=== PATIENT | female | born 1955 | race Caucasian/White ===

== ENCOUNTER 2017-09-05 11:08 | Outpatient (CLI) | payer OTHER | END 2017-09-05 11:09 | disposition home or self-care (01) | LOC: DTY/OP 11:08 | PROVIDERS: ATTEND Family Medicine | DX: E78.00 Pure hypercholesterolemia, unspecified (principal); K76.0 Fatty (change of) liver, not elsewhere classified | CPT/HCPCS: 97802 ==

== ENCOUNTER 2021-02-11 15:36 | Outpatient (CLI) | payer BC | END 2021-02-11 15:37 | disposition home or self-care (01) | LOC: BICMAMMO 15:36 | PROVIDERS: ATTEND Family Medicine | DX: Z12.31 Encounter for screening mammogram for malignant neoplasm of breast (principal); Z80.3 Family history of malignant neoplasm of breast; Z91.89 Other specified personal risk factors, not elsewhere classified | CPT/HCPCS: 77063; 77067 ==

== ENCOUNTER 2021-02-27 13:02 | Inpatient (IN) | payer BC ==
[~2021-02-27 13:02] MED LIST: FLU VACC QS2021-22(6MOS UP)/PF 60 MCG/0.5 ML SYRINGE IM ONE; Iopamidol-370 76% 500 ML 1 ML ONE
[2021-02-27] MEDS ORDERED: Lisinopril 10 MG TAB ONE (13:07)
[2021-02-27] MEDS ORDERED: Propofol 1,000 MG/100 ML VIAL IV ONE (13:07)
[2021-02-27] MEDS ORDERED: Norepinephrine 4 MG/4 ML VIAL ONE (13:22)
[2021-02-27] MEDS ORDERED: cefTRIAXone\\ROCEPHIN 2 GM VIAL ONE (13:26)
[2021-02-27] MEDS ORDERED: Vancomycin 1 GM/200 ML BAG ONE (13:26)
[2021-02-27] MEDS ORDERED: fentaNYL Citrate/PF 2,000 MCG in Sodium Chloride 0.9% 60 ML IV SCH (13:30)
[2021-02-27] MEDS ORDERED: Norepinephrine 8 MG in Dextrose 5% in Water 242 ML IVPB SCH (13:30)
[2021-02-27 13:31] LABS: Actual Bicarbonate (HCO3a) 20.8 mEq/L (22-28); Analyzer IN Cardio ER; Base Excess (BEa) -1.9 mEq/L (-2.0 to +3.0); CO2 Tension 28.8 mmHg (35.0-45.0); Carboxyhemoglobin (COHb) 0.2 gm% (0.0-3.0); Hemoglobin (Hb) 10.6 g/dL (12.0-16.0); O2 Tension (PaO2), arterial 244.1 mmHg (> 80.0); Potassium - ABG Lab 2.59 mmol/L (3.70-5.30); pH, Arterial 7.48 (7.35-7.45)
[2021-02-27 13:34] LABS: #Lymphocytes 0.4 thou/uL (1.20-3.40); #Monocytes 0.2 thou/uL (0.11-0.59); #Neutrophils 11.4 thou/uL (1.40-6.50); %Eosinophils 0.1 % (0.0-10.0); %Monocytes 1.9 % (0.0-10.0); Hemoglobin 11.3 g/dL (12.0-16.0); Mean Corpuscular HGB CONC 34.4 g/dL (32.0-36.0); Mean Corpuscular Hemoglobin 32.7 pg (27.0-31.0); Mean Corpuscular Volume 95.1 fL (78.0-98.0); Mean Platelet Volume 6.8 fL (7.4-10.4); Platelet Count 420 thou/uL (130-400); RBC Distribution Width 12.5 % (11.5-14.5); Red Blood Cell (RBC) Count 3.46 mill/uL (4.20-5.40)
[2021-02-27 13:35] LABS: Puncture Site RRA
[2021-02-27 13:37] LABS: Amphetamine Not Detected (NotDetected); Barbiturates Screen Not Detected (NotDetected); Benzodiazepine Screen Not Detected (NotDetected); Cocaine Metabolite Screen Not Detected (NotDetected); Methadone Not Detected (NotDetected); Methamphetamine Not Detected (NotDetected); Opiate Screen Not Detected (NotDetected); Oxycodone Screen Not Detected (NotDetected); Phencyclidine (PCP) Not Detected (NotDetected); THC/Cannabinoid Screen Not Detected (NotDetected); Tricyclic Screen Not Detected (NotDetected)
[2021-02-27 13:38] LABS: PTT 24.8 sec (22.9-36.1); Prothrombin Time 12.8 sec (12.0-14.7)
[2021-02-27 13:39] LABS: Bacteria/HPF None Seen HPF (None Seen); Bilirubin Negative (Negative); Blood, Urine 1+ (Negative); Clarity Clear (Clear); Glucose, Urine (Dipstick) 50 mg/dL (Negative); Ketone, Urine 40 mg/dL (Negative); Leukocyte Negative Leu/uL (Negative); Nitrite Negative (Negative); Protein, Urine (Dipstick) 70 mg/dL (Neg-Trace); RBC/HPF 0-3 HPF (0-3); Specific Gravity, Urine 1.014 (1.002-1.036); Squamous Epithelial None Seen HPF (0-3); Urobilinogen Normal mg/dL (Less than 2); WBC/HPF 0-3 HPF (0-3); pH, Urine 6.5 (5.0-9.0)
[2021-02-27 13:48] LABS: Acetaminophen Less than 6.0 mcg/mL (10.0-30.0); Alcohol Less than 10 mg/dL (Less than 10); CK (CPK) 397 U/L (29-168); Lipase 28 U/L (8-78); Salicylate Less than 8.0 mg/dL (15.0-30.0)
[2021-02-27 13:50] LABS: ALT (SGPT) 15 U/L (8-55); AST (SGOT) 29 U/L (5-34); Albumin 3.7 g/dL (3.4-4.8); Alkaline Phosphatase 68 U/L (40-110); Anion Gap 22 mmol/L (10-20); BUN (Urea Nitrogen) 5 mg/dL (9.8-20.1); Bilirubin, Total 0.6 mg/dL (0.2-1.2); Calc. Creatinine Clearance 0 mL/min (70-130); Calcium 9.5 mg/dL (7.8-10.44); Carbon Dioxide 22 mmol/L (23-31); Chloride 93 mmol/L (98-107); Globulin 2.7 g/dL (2.4-3.5); Glucose 150 mg/dL (80-115); Protein, Total 6.4 g/dL (5.8-8.1); Sodium 134 mmol/L (136-145)
[2021-02-27 13:56] LABS: Potassium 2.9 mmol/L (3.5-5.1)
[2021-02-27 14:13] LABS: CKMB 5.7 ng/mL (0-6.6)
[2021-02-27] MEDS ORDERED: Potassium Chloride 40 MEQ in Sodium Chloride 0.9% 250 ML 250 ML IVPB SCH (14:45)
[2021-02-27] MEDS ORDERED: Aspirin 300 MG Suppository ONE (15:49)
[2021-02-27] MEDS ORDERED: Fentanyl 100 MCG/2 ML VIAL ONE (15:57)
[2021-02-27 16:25] LABS: SARS-CoV-2 NAA Rapid Test Not Detected (NotDetected)
[2021-02-27] MEDS ORDERED: Pantoprazole 40 MG VIAL ONE (16:27)
[2021-02-27] MEDS ORDERED: Pantoprazole 80 MG, Admixture Fee 1 EACH in Sodium Chloride 0.9% 100 ML IVPB SCH (16:30)
[2021-02-27] MEDS ORDERED: Acetaminophen 325 MG Suppository PR PRN (16:56)
[2021-02-27] MEDS ORDERED: Ondansetron PF 4 MG/2 ML Vial IVP PRN (16:56)
[2021-02-27] MEDS ORDERED: Electrolyte Replacement Protocol 1 EACH IVPB SCH (16:56)
[2021-02-27] MEDS ORDERED: Norepinephrine 8 MG/0.9% NS 250 ML IVPB PRN (16:56)
[2021-02-27] MEDS ORDERED: Ventilator Sedation Protocol 1 EACH FS SCH (17:00)
[2021-02-27] MEDS ORDERED: DISCONTINUE PREVIOUS NARCOTIC PAIN MEDICATIONS AND BENZODIAZEPINES FS SCH (17:15)
[2021-02-27] MEDS ORDERED: Fentanyl BOLUS 250 ML IVPB PRN (17:15)
[2021-02-27] MEDS ORDERED: Fentanyl CADD 100 ML IV SCH (17:15)
[2021-02-27] MEDS ORDERED: Morphine 2 MG/ML VIAL SLOW IVP PRN (17:15)
[2021-02-27] MEDS ORDERED: Propofol BOLUS 1,000 MG/100 ML VIAL IV PRN (17:15)
[2021-02-27] MEDS ORDERED: levETIRAcetam 2,000 MG in Sodium Chloride 0.9% 100 ML IVPB SCH (17:30)
[2021-02-27 17:31] LABS: Lactic Acid 1.5 mmol/L (0.5-2.2)
[2021-02-27] MEDS ORDERED: HYDROcodone/Acetaminophen 5/325 mg Tablet PO PRN ×2 (17:50)
[2021-02-27] MEDS ORDERED: Acetaminophen 650 MG Suppository PR PRN (17:50)
[2021-02-27] MEDS ORDERED: Senokot S 8.6-50 MG TAB PO PRN (17:50)
[2021-02-27] MEDS ORDERED: Acetaminophen 325 MG TAB PO PRN (17:50)
[2021-02-27] MEDS ORDERED: Bisacodyl 5 MG TAB PO PRN (17:50)
[2021-02-27 18:27] LABS: Anion Gap 18 mmol/L (10-20); BUN (Urea Nitrogen) 4 mg/dL (9.8-20.1); Calc. Creatinine Clearance 0 mL/min (70-130); Calcium 8.6 mg/dL (7.8-10.44); Carbon Dioxide 21 mmol/L (23-31); Chloride 98 mmol/L (98-107); Glucose 143 mg/dL (80-115); Magnesium 1.1 mg/dL (1.6-2.6); Potassium 3.1 mmol/L (3.5-5.1); Sodium 134 mmol/L (136-145)
[2021-02-27 18:33] LABS: Phosphorus 1.6 mg/dL (2.3-4.7)
[2021-02-27 18:59] LABS: CKMB 17.3 ng/mL (0-6.6)
[2021-02-27] MEDS ORDERED: Potassium Phosphate 15 MMOL in Sodium Chloride 0.9% 100 ML IVPB SCH (19:15)
[2021-02-27 19:25] LABS: HIV (1/2) Antibody/Antigen Non-Reactive (NonReactive); HIV 1/2 INDEX 0.14 S/CO (<1.00); Syphilis Antibody Nonreactive (Nonreactive); Syphilis Antibody Index 0.03 S/CO (<1.00 Non-Reactive)
[2021-02-27] MEDS ORDERED: Famotidine/PF 20 mg/2ml Vial SLOW IVP SCH (21:00)
[2021-02-27] MEDS: levETIRAcetam in NS 1,500 MG in Premix Bag 1 BAG IVPB SCH (23:16)
[2021-02-27] MEDS: Pantoprazole 40 MG VIAL IVP SCH (23:16)
[2021-02-27] MEDS: Propofol 1,000 MG/100 ML VIAL IV PRN (23:18)
[2021-02-27] MEDS ORDERED: Magnesium Sulfate 4 GM in Sodium Chloride 0.9% 250 ML 250 ML IVPB SCH (23:30)
[2021-02-27] MEDS ORDERED: Potassium Chloride 40 MEQ in Premix Bag 1 BAG IVPB SCH (23:30)
[2021-02-28 01:16] LABS: CKMB 22.2 ng/mL (0-6.6)
[2021-02-28] MEDS ORDERED: Electrolyte Replacement Protocol 1 EACH FS SCH (01:30)
[2021-02-28] MEDS ORDERED: Magnesium Sulfate 4 GM in Sodium Chloride 0.9% 250 ML 250 ML IVPB SCH (01:45)
[2021-02-28] MEDS ORDERED: Enoxaparin Sodium 80 MG/0.8 ML SYRINGE SC SCH (01:45)
[2021-02-28] MEDS: Vancomycin 1 GM in Premix Bag 1 BAG IVPB SCH ×2 (03:01→16:07)
[2021-02-28 04:42] LABS: Hemoglobin 10.1 g/dL (12.0-16.0); Mean Corpuscular HGB CONC 33.8 g/dL (32.0-36.0); Mean Corpuscular Hemoglobin 31.4 pg (27.0-31.0); Mean Corpuscular Volume 92.9 fL (78.0-98.0); Mean Platelet Volume 6.9 fL (7.4-10.4); Platelet Count 371 thou/uL (130-400); RBC Distribution Width 12.5 % (11.5-14.5); Red Blood Cell (RBC) Count 3.22 mill/uL (4.20-5.40); White Blood Cell (WBC) Count 12.7 thou/uL (4.8-10.8)
[2021-02-28 05:00] LABS: ALT (SGPT) 16 U/L (8-55); AST (SGOT) 71 U/L (5-34); Albumin 3.3 g/dL (3.4-4.8); Alkaline Phosphatase 57 U/L (40-110); Anion Gap 15 mmol/L (10-20); BUN (Urea Nitrogen) 7 mg/dL (9.8-20.1); Bilirubin, Total 0.6 mg/dL (0.2-1.2); Calc. Creatinine Clearance 105 mL/min (70-130); Calcium 8.5 mg/dL (7.8-10.44); Carbon Dioxide 25 mmol/L (23-31); Chloride 98 mmol/L (98-107); Globulin 2.4 g/dL (2.4-3.5); Glucose 176 mg/dL (80-115); Magnesium 2.1 mg/dL (1.6-2.6); Potassium 3.5 mmol/L (3.5-5.1); Protein, Total 5.7 g/dL (5.8-8.1); Sodium 134 mmol/L (136-145)
[2021-02-28] MEDS ORDERED: Potassium Chloride 40 MEQ in Premix Bag 1 BAG IVPB SCH (05:30)
[2021-02-28 05:40] LABS: Band 1 % (5-11); Lymphocytes 6 % (21-51); MDiff Complete? YES; Metamyelocyte 1 % (0-0); Monocytes 1 % (0-10); Neutrophil 91 % (42-75)
[2021-02-28 07:23] LABS: Actual Bicarbonate (HCO3a) 22.9 mEq/L (22-28); Base Excess (BEa) -0.6 mEq/L (-2.0 to +3.0); CO2 Tension 33.2 mmHg (35.0-45.0); Calcium, Ionized (arterial) 1.16 mmol/L (1.12-1.30); Carboxyhemoglobin (COHb) 0.3 gm% (0.0-3.0); Hemoglobin (Hb) 9.7 g/dL (12.0-16.0); O2 Tension (PaO2), arterial 142.2 mmHg (> 80.0); Potassium - ABG Lab 4.09 mmol/L (3.70-5.30); pH, Arterial 7.46 (7.35-7.45)
[2021-02-28 07:43] LABS: Puncture Site RRA
[2021-02-28] MEDS: Thiamine 100 MG TAB PO SCH (08:33)
[2021-02-28] MEDS: Folic Acid 1 MG TAB PO SCH (08:33)
[2021-02-28] MEDS: Pantoprazole 40 MG VIAL IVP SCH ×2 (08:33→20:28)
[2021-02-28] MEDS: Enoxaparin Sodium 40 MG/0.4 ML SYRINGE SC SCH (08:33)
[2021-02-28] MEDS: Aspirin 325 MG TAB PO SCH (08:33)
[2021-02-28] MEDS: Cyanocobalamin (Vitamin B-12) 1,000 MCG TAB PO SCH (08:34)
[2021-02-28] MEDS: Lacosamide 200 MG in Sodium Chloride 0.9% 50 ML IVPB SCH ×2 (09:57→20:27)
[2021-02-28] MEDS: levETIRAcetam in NS 1,500 MG in Premix Bag 1 BAG IVPB SCH ×2 (09:57→20:28)
[2021-02-28] MEDS: cefTRIAXone\\ROCEPHIN 2 GM in Sodium Chloride 0.9% 100 ML IVPB SCH (14:27)
[2021-02-28 14:36] LABS: Unspun CSF Color COLORLESS (Colorless)
[2021-02-28 14:46] LABS: Color Of CSF Supernatant COLORLESS (Colorless); Tube # 1
[2021-02-28 15:04] LABS: CSF, Glucose 86 mg/dl (40-70); CSF, Protein 47 mg/dL (15-40)
[2021-02-28] MEDS: Propofol 1,000 MG/100 ML VIAL IV PRN (15:21)
[2021-02-28 15:24] LABS: CSF Source CSF; Clarity Clear (Clear); Tube # 2
[2021-02-28 15:24] LABS: CSF Source CSF; Clarity Clear (Clear); Tube # 4
[2021-03-01] MEDS: Propofol 1,000 MG/100 ML VIAL IV PRN ×2 (04:21→16:07)
[2021-03-01 04:49] LABS: ALT (SGPT) 16 U/L (8-55); AST (SGOT) 50 U/L (5-34); Albumin 3.1 g/dL (3.4-4.8); Alkaline Phosphatase 50 U/L (40-110); Anion Gap 14 mmol/L (10-20); BUN (Urea Nitrogen) 12 mg/dL (9.8-20.1); Bilirubin, Total 0.6 mg/dL (0.2-1.2); Calc. Creatinine Clearance 116 mL/min (70-130); Calcium 8.9 mg/dL (7.8-10.44); Carbon Dioxide 25 mmol/L (23-31); Chloride 101 mmol/L (98-107); Globulin 2.1 g/dL (2.4-3.5); Glucose 118 mg/dL (80-115); Potassium 3.8 mmol/L (3.5-5.1); Protein, Total 5.2 g/dL (5.8-8.1); Sodium 136 mmol/L (136-145)
[2021-03-01 05:16] LABS: Hemoglobin 9.3 g/dL (12.0-16.0); Mean Corpuscular HGB CONC 33.5 g/dL (32.0-36.0); Mean Corpuscular Hemoglobin 31.2 pg (27.0-31.0); Mean Corpuscular Volume 93.2 fL (78.0-98.0); Mean Platelet Volume 7.6 fL (7.4-10.4); Platelet Count 317 thou/uL (130-400); RBC Distribution Width 12.7 % (11.5-14.5); Red Blood Cell (RBC) Count 2.99 mill/uL (4.20-5.40); White Blood Cell (WBC) Count 12.5 thou/uL (4.8-10.8)
[2021-03-01 05:50] LABS: Band 8 % (5-11); Lymphocytes 5 % (21-51); MDiff Complete? YES; Monocytes 6 % (0-10); Neutrophil 81 % (42-75)
[2021-03-01 07:37] LABS: Vancomycin, Trough 4.1 ug/mL
[2021-03-01 08:25] LABS: Actual Bicarbonate (HCO3a) 26.7 mEq/L (22-28); CO2 Tension 37.4 mmHg (35.0-45.0); Calcium, Ionized (arterial) 1.19 mmol/L (1.12-1.30); Carboxyhemoglobin (COHb) 0.3 gm% (0.0-3.0); Hemoglobin (Hb) 10.2 g/dL (12.0-16.0); O2 Tension (PaO2), arterial 109.9 mmHg (> 80.0); Potassium - ABG Lab 3.79 mmol/L (3.70-5.30); pH, Arterial 7.47 (7.35-7.45)
[2021-03-01] MEDS: Thiamine 100 MG TAB PO SCH (08:33)
[2021-03-01] MEDS: Cyanocobalamin (Vitamin B-12) 1,000 MCG TAB PO SCH (08:33)
[2021-03-01] MEDS: Aspirin 325 MG TAB PO SCH (08:33)
[2021-03-01] MEDS: Folic Acid 1 MG TAB PO SCH (08:33)
[2021-03-01] MEDS: Pantoprazole 40 MG VIAL IVP SCH ×2 (08:34→20:01)
[2021-03-01] MEDS: Enoxaparin Sodium 40 MG/0.4 ML SYRINGE SC SCH (08:34)
[2021-03-01 08:39] LABS: Puncture Site LRA
[2021-03-01] MEDS: Lacosamide 200 MG in Sodium Chloride 0.9% 50 ML IVPB SCH ×2 (09:20→20:02)
[2021-03-01] MEDS: levETIRAcetam in NS 1,500 MG in Premix Bag 1 BAG IVPB SCH ×2 (09:20→20:01)
[2021-03-01] MEDS: cefTRIAXone\\ROCEPHIN 2 GM in Sodium Chloride 0.9% 100 ML IVPB SCH (12:59)
[2021-03-02 04:49] LABS: Hemoglobin 9.5 g/dL (12.0-16.0); Mean Corpuscular HGB CONC 34.4 g/dL (32.0-36.0); Mean Corpuscular Hemoglobin 32.6 pg (27.0-31.0); Mean Corpuscular Volume 94.7 fL (78.0-98.0); Mean Platelet Volume 7.4 fL (7.4-10.4); Platelet Count 268 thou/uL (130-400); RBC Distribution Width 12.6 % (11.5-14.5); Red Blood Cell (RBC) Count 2.91 mill/uL (4.20-5.40); White Blood Cell (WBC) Count 11.7 thou/uL (4.8-10.8)
[2021-03-02 05:03] LABS: ALT (SGPT) 16 U/L (8-55); AST (SGOT) 33 U/L (5-34); Albumin 3.1 g/dL (3.4-4.8); Alkaline Phosphatase 52 U/L (40-110); Anion Gap 11 mmol/L (10-20); BUN (Urea Nitrogen) 13 mg/dL (9.8-20.1); Bilirubin, Total 0.6 mg/dL (0.2-1.2); CK (CPK) 257 U/L (29-168); Calc. Creatinine Clearance 119 mL/min (70-130); Calcium 9.2 mg/dL (7.8-10.44); Carbon Dioxide 28 mmol/L (23-31); Chloride 101 mmol/L (98-107); Globulin 2.3 g/dL (2.4-3.5); Glucose 133 mg/dL (80-115); Magnesium 1.5 mg/dL (1.6-2.6); Potassium 3.6 mmol/L (3.5-5.1); Protein, Total 5.4 g/dL (5.8-8.1); Sodium 136 mmol/L (136-145)
[2021-03-02 05:11] LABS: Phosphorus 2.2 mg/dL (2.3-4.7)
[2021-03-02 05:13] LABS: Lactic Acid 2.2 mmol/L (0.5-2.2)
[2021-03-02 05:25] LABS: Lymphocytes 11 % (21-51); MDiff Complete? YES; Monocytes 6 % (0-10); Neutrophil 83 % (42-75)
[2021-03-02] MEDS: Propofol 1,000 MG/100 ML VIAL IV PRN ×2 (05:56→23:32)
[2021-03-02] MEDS ORDERED: Magnesium 2 GM/50 ML 2 GM in Premix Bag 1 BAG IVPB SCH (07:00)
[2021-03-02 07:59] LABS: Actual Bicarbonate (HCO3a) 26.9 mEq/L (22-28); Base Excess (BEa) 3.3 mEq/L (-2.0 to +3.0); CO2 Tension 36.9 mmHg (35.0-45.0); Calcium, Ionized (arterial) 1.18 mmol/L (1.12-1.30); Carboxyhemoglobin (COHb) 0.3 gm% (0.0-3.0); O2 Tension (PaO2), arterial 84.2 mmHg (> 80.0); Potassium - ABG Lab 3.34 mmol/L (3.70-5.30); pH, Arterial 7.48 (7.35-7.45)
[2021-03-02 08:01] LABS: ALV-art Gradient 83.575 mmHg (0-20); Puncture Site RR
[2021-03-02] MEDS: Thiamine 100 MG TAB PO SCH (08:06)
[2021-03-02] MEDS: levETIRAcetam in NS 1,500 MG in Premix Bag 1 BAG IVPB SCH ×2 (08:06→21:24)
[2021-03-02] MEDS: Cyanocobalamin (Vitamin B-12) 1,000 MCG TAB PO SCH (08:07)
[2021-03-02] MEDS: Folic Acid 1 MG TAB PO SCH (08:07)
[2021-03-02] MEDS: Enoxaparin Sodium 40 MG/0.4 ML SYRINGE SC SCH (08:07)
[2021-03-02] MEDS: Aspirin 325 MG TAB PO SCH (08:07)
[2021-03-02] MEDS: Pantoprazole 40 MG VIAL IVP SCH ×2 (08:07→21:24)
[2021-03-02] MEDS: Lacosamide 200 MG in Sodium Chloride 0.9% 50 ML IVPB SCH ×2 (09:56→21:24)
[2021-03-02] MEDS: cefTRIAXone\\ROCEPHIN 2 GM in Sodium Chloride 0.9% 100 ML IVPB SCH (14:37)
[2021-03-02] MEDS: Fosphenytoin Sodium 100 MG in Sodium Chloride 0.9% 50 ML IVPB SCH (19:23)
[2021-03-03 04:25] LABS: #Eosinphils 0.1 thou/uL (0.0-0.7); #Lymphocytes 1.2 thou/uL (1.20-3.40); #Monocytes 0.8 thou/uL (0.11-0.59); %Basophils 0.1 % (0.0-1.0); %Eosinophils 0.8 % (0.0-10.0); %Lymphocytes 11.5 % (21.0-51.0); %Monocytes 7.7 % (0.0-10.0); %Neutrophils 79.8 % (42.0-75.0); Mean Corpuscular Hemoglobin 30.2 pg (27.0-31.0); Mean Corpuscular Volume 94.4 fL (78.0-98.0); Mean Platelet Volume 7.5 fL (7.4-10.4); Platelet Count 274 thou/uL (130-400); RBC Distribution Width 12.7 % (11.5-14.5); Red Blood Cell (RBC) Count 2.98 mill/uL (4.20-5.40)
[2021-03-03] MEDS: Fosphenytoin Sodium 100 MG in Sodium Chloride 0.9% 50 ML IVPB SCH ×4 (04:54→21:31)
[2021-03-03 04:55] LABS: ALT (SGPT) 13 U/L (8-55); AST (SGOT) 23 U/L (5-34); Albumin 2.9 g/dL (3.4-4.8); Alkaline Phosphatase 51 U/L (40-110); Anion Gap 11 mmol/L (10-20); BUN (Urea Nitrogen) 8 mg/dL (9.8-20.1); Bilirubin, Total 0.4 mg/dL (0.2-1.2); Calc. Creatinine Clearance 129 mL/min (70-130); Calcium 8.4 mg/dL (7.8-10.44); Carbon Dioxide 27 mmol/L (23-31); Chloride 99 mmol/L (98-107); Globulin 2.1 g/dL (2.4-3.5); Glucose 166 mg/dL (80-115); Magnesium 1.5 mg/dL (1.6-2.6); Phosphorus 3.2 mg/dL (2.3-4.7); Potassium 3.2 mmol/L (3.5-5.1); Sodium 134 mmol/L (136-145)
[2021-03-03] MEDS ORDERED: Magnesium 2 GM/50 ML 2 GM in Premix Bag 1 BAG IVPB SCH (07:00)
[2021-03-03 07:28] LABS: Base Excess (BEa) 3.3 mEq/L (-2.0 to +3.0); CO2 Tension 32.4 mmHg (35.0-45.0); Calcium, Ionized (arterial) 1.11 mmol/L (1.12-1.30); Carboxyhemoglobin (COHb) 0.3 gm% (0.0-3.0); Hemoglobin (Hb) 9.7 g/dL (12.0-16.0); O2 Tension (PaO2), arterial 102.1 mmHg (> 80.0); Potassium - ABG Lab 3.09 mmol/L (3.70-5.30); pH, Arterial 7.52 (7.35-7.45)
[2021-03-03 07:34] LABS: Puncture Site RRA
[2021-03-03] MEDS ORDERED: Potassium Chloride 40 MEQ in Sodium Chloride 0.9% 250 ML 250 ML IVPB SCH (08:00)
[2021-03-03] MEDS ORDERED: Potassium Chloride 40 MEQ in Premix Bag 1 BAG IVPB SCH (08:00)
[2021-03-03] MEDS: Lacosamide 200 MG in Sodium Chloride 0.9% 50 ML IVPB SCH ×2 (09:36→20:10)
[2021-03-03] MEDS: levETIRAcetam in NS 1,500 MG in Premix Bag 1 BAG IVPB SCH ×2 (09:37→20:09)
[2021-03-03] MEDS: Enoxaparin Sodium 40 MG/0.4 ML SYRINGE SC SCH (09:37)
[2021-03-03] MEDS: Aspirin Chewable 81 MG TAB PO SCH (09:38)
[2021-03-03] MEDS: Metoprolol Tartrate 25 MG TAB PO SCH ×2 (09:38→20:10)
[2021-03-03] MEDS: Cyanocobalamin (Vitamin B-12) 1,000 MCG TAB PO SCH (09:38)
[2021-03-03] MEDS: Thiamine 100 MG TAB PO SCH (09:38)
[2021-03-03] MEDS: Folic Acid 1 MG TAB PO SCH (09:38)
[2021-03-03] MEDS: Pantoprazole 40 MG VIAL IVP SCH (09:39)
[2021-03-03] MEDS: Lorazepam 2 MG/ML VIAL SLOW IVP PRN ×2 (12:00→22:52)
[2021-03-03] MEDS: cefTRIAXone\\ROCEPHIN 2 GM in Sodium Chloride 0.9% 100 ML IVPB SCH (15:00)
[2021-03-03] MEDS: Atorvastatin Calcium 20 MG TAB PO SCH (20:10)
[2021-03-03] MEDS: Pantoprazole 40 MG GRANULES PACKET PER TUBE SCH (20:10)
[2021-03-04] MEDS: Fosphenytoin Sodium 100 MG in Sodium Chloride 0.9% 50 ML IVPB SCH ×4 (04:01→21:21)
[2021-03-04 04:30] LABS: #Eosinphils 0.2 thou/uL (0.0-0.7); #Lymphocytes 1.3 thou/uL (1.20-3.40); #Monocytes 0.8 thou/uL (0.11-0.59); #Neutrophils 7.6 thou/uL (1.40-6.50); %Basophils 0.1 % (0.0-1.0); %Eosinophils 2.4 % (0.0-10.0); %Monocytes 7.9 % (0.0-10.0); %Neutrophils 76.7 % (42.0-75.0); Mean Corpuscular HGB CONC 33.9 g/dL (32.0-36.0); Mean Corpuscular Hemoglobin 32.4 pg (27.0-31.0); Mean Corpuscular Volume 95.5 fL (78.0-98.0); Platelet Count 241 thou/uL (130-400); RBC Distribution Width 12.6 % (11.5-14.5); Red Blood Cell (RBC) Count 2.79 mill/uL (4.20-5.40); White Blood Cell (WBC) Count 9.9 thou/uL (4.8-10.8)
[2021-03-04 04:54] LABS: ALT (SGPT) 14 U/L (8-55); AST (SGOT) 19 U/L (5-34); Albumin 2.5 g/dL (3.4-4.8); Alkaline Phosphatase 51 U/L (40-110); Anion Gap 11 mmol/L (10-20); BUN (Urea Nitrogen) 7 mg/dL (9.8-20.1); Bilirubin, Total 0.3 mg/dL (0.2-1.2); Calc. Creatinine Clearance 153 mL/min (70-130); Calcium 8.4 mg/dL (7.8-10.44); Carbon Dioxide 28 mmol/L (23-31); Chloride 99 mmol/L (98-107); Globulin 2.2 g/dL (2.4-3.5); Glucose 107 mg/dL (80-115); Magnesium 1.6 mg/dL (1.6-2.6); Phosphorus 3.1 mg/dL (2.3-4.7); Potassium 3.5 mmol/L (3.5-5.1); Protein, Total 4.7 g/dL (5.8-8.1); Sodium 134 mmol/L (136-145)
[2021-03-04] MEDS ORDERED: Potassium Bicarbonate/Cit Ac 20 MEQ TAB PER TUBE SCH (05:30)
[2021-03-04] MEDS ORDERED: Magnesium 2 GM/50 ML 2 GM in Premix Bag 1 BAG IVPB SCH (05:30)
[2021-03-04 07:27] LABS: Base Excess (BEa) 3.7 mEq/L (-2.0 to +3.0); CO2 Tension 35.7 mmHg (35.0-45.0); Calcium, Ionized (arterial) 1.14 mmol/L (1.12-1.30); Carboxyhemoglobin (COHb) 0.3 gm% (0.0-3.0); Hemoglobin (Hb) 10.3 g/dL (12.0-16.0); O2 Tension (PaO2), arterial 112.7 mmHg (> 80.0)
[2021-03-04 07:31] LABS: Puncture Site RRA
[2021-03-04 07:32] LABS: ALV-art Gradient 56.575 mmHg (0-20)
[2021-03-04] MEDS: Pantoprazole 40 MG GRANULES PACKET PER TUBE SCH ×3 (08:14→22:04)
[2021-03-04] MEDS: levETIRAcetam in NS 1,500 MG in Premix Bag 1 BAG IVPB SCH ×2 (08:14→21:37)
[2021-03-04] MEDS: Cyanocobalamin (Vitamin B-12) 1,000 MCG TAB PO SCH (08:14)
[2021-03-04] MEDS: Thiamine 100 MG TAB PO SCH (08:14)
[2021-03-04] MEDS: Folic Acid 1 MG TAB PO SCH (08:14)
[2021-03-04] MEDS: Aspirin Chewable 81 MG TAB PO SCH (08:14)
[2021-03-04] MEDS: Metoprolol Tartrate 25 MG TAB PO SCH ×2 (08:14→21:20)
[2021-03-04] MEDS: Enoxaparin Sodium 40 MG/0.4 ML SYRINGE SC SCH (08:14)
[2021-03-04] MEDS: Lacosamide 200 MG in Sodium Chloride 0.9% 50 ML IVPB SCH ×2 (09:45→21:21)
[2021-03-04] MEDS: Lorazepam 2 MG/ML VIAL SLOW IVP PRN (10:17)
[2021-03-04 10:19] LABS: Potassium 3.9 mmol/L (3.5-5.1)
[2021-03-04] MEDS: cefTRIAXone\\ROCEPHIN 2 GM in Sodium Chloride 0.9% 100 ML IVPB SCH (15:00)
[2021-03-04] MEDS: Atorvastatin Calcium 20 MG TAB PO SCH (21:20)
[2021-03-04] MEDS ORDERED: Pantoprazole 40 MG VIAL IVP SCH (22:15)
[2021-03-04] MEDS ORDERED: Sodium Chloride 0.9% (PF) 10 ML VIAL FS PRN (22:15)
[2021-03-05] MEDS: Fosphenytoin Sodium 100 MG in Sodium Chloride 0.9% 50 ML IVPB SCH ×4 (03:38→23:05)
[2021-03-05 03:55] LABS: #Eosinphils 0.3 thou/uL (0.0-0.7); #Lymphocytes 1.1 thou/uL (1.20-3.40); #Monocytes 0.7 thou/uL (0.11-0.59); #Neutrophils 7.1 thou/uL (1.40-6.50); %Basophils 0.2 % (0.0-1.0); %Eosinophils 3.1 % (0.0-10.0); %Lymphocytes 11.4 % (21.0-51.0); %Monocytes 7.9 % (0.0-10.0); %Neutrophils 77.3 % (42.0-75.0); Hemoglobin 8.7 g/dL (12.0-16.0); Mean Corpuscular HGB CONC 33.4 g/dL (32.0-36.0); Mean Corpuscular Hemoglobin 31.9 pg (27.0-31.0); Mean Corpuscular Volume 95.6 fL (78.0-98.0); Mean Platelet Volume 7.7 fL (7.4-10.4); Platelet Count 248 thou/uL (130-400); RBC Distribution Width 12.5 % (11.5-14.5); Red Blood Cell (RBC) Count 2.71 mill/uL (4.20-5.40); White Blood Cell (WBC) Count 9.2 thou/uL (4.8-10.8)
[2021-03-05 04:15] LABS: ALT (SGPT) 19 U/L (8-55); AST (SGOT) 24 U/L (5-34); Albumin 2.5 g/dL (3.4-4.8); Alkaline Phosphatase 51 U/L (40-110); Anion Gap 11 mmol/L (10-20); BUN (Urea Nitrogen) 8 mg/dL (9.8-20.1); Bilirubin, Total 0.2 mg/dL (0.2-1.2); Calc. Creatinine Clearance 157 mL/min (70-130); Calcium 8.2 mg/dL (7.8-10.44); Carbon Dioxide 27 mmol/L (23-31); Chloride 99 mmol/L (98-107); Globulin 2.1 g/dL (2.4-3.5); Glucose 127 mg/dL (80-115); Magnesium 1.5 mg/dL (1.6-2.6); Phosphorus 3.1 mg/dL (2.3-4.7); Potassium 3.6 mmol/L (3.5-5.1); Protein, Total 4.6 g/dL (5.8-8.1); Sodium 133 mmol/L (136-145)
[2021-03-05 07:10] LABS: Actual Bicarbonate (HCO3a) 27.9 mEq/L (22-28); Base Excess (BEa) 4.7 mEq/L (-2.0 to +3.0); CO2 Tension 35.9 mmHg (35.0-45.0); Calcium, Ionized (arterial) 1.14 mmol/L (1.12-1.30); Carboxyhemoglobin (COHb) 0.3 gm% (0.0-3.0); Hemoglobin (Hb) 9.5 g/dL (12.0-16.0); O2 Tension (PaO2), arterial 94.2 mmHg (> 80.0); Potassium - ABG Lab 3.56 mmol/L (3.70-5.30); pH, Arterial 7.51 (7.35-7.45)
[2021-03-05 08:29] LABS: Puncture Site RRA
[2021-03-05 08:30] LABS: ALV-art Gradient 74.825 mmHg (0-20)
[2021-03-05] MEDS: Enoxaparin Sodium 40 MG/0.4 ML SYRINGE SC SCH (08:33)
[2021-03-05] MEDS: Thiamine 100 MG TAB PO SCH (08:34)
[2021-03-05] MEDS: Aspirin Chewable 81 MG TAB PO SCH (08:34)
[2021-03-05] MEDS: Metoprolol Tartrate 25 MG TAB PO SCH ×2 (08:34→20:48)
[2021-03-05] MEDS: Folic Acid 1 MG TAB PO SCH (08:34)
[2021-03-05] MEDS: levETIRAcetam in NS 1,500 MG in Premix Bag 1 BAG IVPB SCH ×2 (08:35→20:49)
[2021-03-05] MEDS: Pantoprazole 40 MG VIAL IVP SCH ×2 (08:35→20:49)
[2021-03-05] MEDS ORDERED: Magnesium 2 GM/50 ML 2 GM in Premix Bag 1 BAG IVPB SCH (09:00)
[2021-03-05] MEDS: Cyanocobalamin (Vitamin B-12) 1,000 MCG TAB PO SCH (09:27)
[2021-03-05] MEDS: Lacosamide 200 MG in Sodium Chloride 0.9% 50 ML IVPB SCH ×2 (09:49→21:46)
[2021-03-05] MEDS: cefTRIAXone\\ROCEPHIN 2 GM in Sodium Chloride 0.9% 100 ML IVPB SCH (15:45)
[2021-03-05] MEDS ORDERED: Metoprolol Tartrate 5 MG/5 ML VIAL IVP PRN (20:34)
[2021-03-05] MEDS ORDERED: Racepinephrine 2.25% 0.5 ML NEB NEB SCH (20:45)
[2021-03-05] MEDS: Atorvastatin Calcium 20 MG TAB PO SCH (20:48)
[2021-03-06] MEDS: Fosphenytoin Sodium 100 MG in Sodium Chloride 0.9% 50 ML IVPB SCH ×4 (04:05→22:33)
[2021-03-06 04:36] LABS: #Eosinphils 0.4 thou/uL (0.0-0.7); #Monocytes 0.6 thou/uL (0.11-0.59); %Basophils 0.4 % (0.0-1.0); %Eosinophils 5.3 % (0.0-10.0); %Lymphocytes 13.9 % (21.0-51.0); %Monocytes 8.2 % (0.0-10.0); %Neutrophils 72.2 % (42.0-75.0); Hemoglobin 8.8 g/dL (12.0-16.0); Mean Corpuscular HGB CONC 35.4 g/dL (32.0-36.0); Mean Corpuscular Hemoglobin 33.3 pg (27.0-31.0); Mean Corpuscular Volume 94.1 fL (78.0-98.0); Mean Platelet Volume 7.7 fL (7.4-10.4); Platelet Count 290 thou/uL (130-400); RBC Distribution Width 12.5 % (11.5-14.5); Red Blood Cell (RBC) Count 2.63 mill/uL (4.20-5.40); White Blood Cell (WBC) Count 6.9 thou/uL (4.8-10.8)
[2021-03-06 05:04] LABS: ALT (SGPT) 25 U/L (8-55); AST (SGOT) 25 U/L (5-34); Albumin 2.6 g/dL (3.4-4.8); Alkaline Phosphatase 57 U/L (40-110); Anion Gap 10 mmol/L (10-20); BUN (Urea Nitrogen) 6 mg/dL (9.8-20.1); Bilirubin, Total 0.2 mg/dL (0.2-1.2); Calc. Creatinine Clearance 153 mL/min (70-130); Calcium 8.7 mg/dL (7.8-10.44); Carbon Dioxide 30 mmol/L (23-31); Chloride 102 mmol/L (98-107); Globulin 2.3 g/dL (2.4-3.5); Glucose 97 mg/dL (80-115); Magnesium 1.5 mg/dL (1.6-2.6); Phosphorus 4.3 mg/dL (2.3-4.7); Potassium 3.6 mmol/L (3.5-5.1); Protein, Total 4.9 g/dL (5.8-8.1); Sodium 138 mmol/L (136-145)
[2021-03-06] MEDS ORDERED: Magnesium 2 GM/50 ML 2 GM in Premix Bag 1 BAG IVPB SCH (08:00)
[2021-03-06] MEDS: Aspirin Chewable 81 MG TAB PO SCH ×2 (08:01→08:15)
[2021-03-06] MEDS: Cyanocobalamin (Vitamin B-12) 1,000 MCG TAB PO SCH (08:15)
[2021-03-06] MEDS: Losartan 25 MG TAB PO SCH (08:15)
[2021-03-06] MEDS: Folic Acid 1 MG TAB PO SCH (08:15)
[2021-03-06] MEDS: Thiamine 100 MG TAB PO SCH (08:16)
[2021-03-06] MEDS: Metoprolol Tartrate 25 MG TAB PO SCH ×2 (08:16→20:49)
[2021-03-06] MEDS: levETIRAcetam in NS 1,500 MG in Premix Bag 1 BAG IVPB SCH ×2 (08:27→19:56)
[2021-03-06] MEDS: Pantoprazole 40 MG VIAL IVP SCH ×2 (08:27→19:56)
[2021-03-06] MEDS: Enoxaparin Sodium 40 MG/0.4 ML SYRINGE SC SCH (08:27)
[2021-03-06] MEDS: Lacosamide 200 MG in Sodium Chloride 0.9% 50 ML IVPB SCH ×2 (08:37→21:18)
[2021-03-06] MEDS: cefTRIAXone\\ROCEPHIN 2 GM in Sodium Chloride 0.9% 100 ML IVPB SCH (14:34)
[2021-03-06] MEDS: Atorvastatin Calcium 20 MG TAB PO SCH (20:48)
[2021-03-07 00:44] LABS: SARS-CoV-2 PCR by NAA Not Detected (NotDetected)
[2021-03-07] MEDS: Fosphenytoin Sodium 100 MG in Sodium Chloride 0.9% 50 ML IVPB SCH ×4 (03:23→22:46)
[2021-03-07 04:15] LABS: #Eosinphils 0.4 thou/uL (0.0-0.7); #Monocytes 0.7 thou/uL (0.11-0.59); #Neutrophils 5.1 thou/uL (1.40-6.50); %Basophils 0.4 % (0.0-1.0); %Eosinophils 5.1 % (0.0-10.0); %Lymphocytes 14.2 % (21.0-51.0); %Neutrophils 70.3 % (42.0-75.0); Hemoglobin 9.3 g/dL (12.0-16.0); Mean Corpuscular HGB CONC 36.1 g/dL (32.0-36.0); Mean Corpuscular Hemoglobin 33.7 pg (27.0-31.0); Mean Corpuscular Volume 93.2 fL (78.0-98.0); Mean Platelet Volume 7.5 fL (7.4-10.4); Platelet Count 322 thou/uL (130-400); RBC Distribution Width 12.4 % (11.5-14.5); Red Blood Cell (RBC) Count 2.77 mill/uL (4.20-5.40); White Blood Cell (WBC) Count 7.2 thou/uL (4.8-10.8)
[2021-03-07 04:35] LABS: ALT (SGPT) 26 U/L (8-55); AST (SGOT) 26 U/L (5-34); Albumin 2.9 g/dL (3.4-4.8); Alkaline Phosphatase 60 U/L (40-110); Anion Gap 14 mmol/L (10-20); BUN (Urea Nitrogen) 5 mg/dL (9.8-20.1); Bilirubin, Total 0.3 mg/dL (0.2-1.2); Calc. Creatinine Clearance 134 mL/min (70-130); Calcium 9.1 mg/dL (7.8-10.44); Carbon Dioxide 27 mmol/L (23-31); Chloride 99 mmol/L (98-107); Globulin 2.4 g/dL (2.4-3.5); Glucose 83 mg/dL (80-115); Magnesium 1.5 mg/dL (1.6-2.6); Phosphorus 4.2 mg/dL (2.3-4.7); Potassium 3.2 mmol/L (3.5-5.1); Protein, Total 5.3 g/dL (5.8-8.1); Sodium 137 mmol/L (136-145)
[2021-03-07] MEDS ORDERED: Potassium Chloride 40 MEQ in Sodium Chloride 0.9% 250 ML 250 ML IVPB SCH (06:30)
[2021-03-07] MEDS ORDERED: Magnesium 2 GM/50 ML 2 GM in Premix Bag 1 BAG IVPB SCH (06:30)
[2021-03-07] MEDS: Aspirin Chewable 81 MG TAB PO SCH (07:38)
[2021-03-07] MEDS: Folic Acid 1 MG TAB PO SCH (09:15)
[2021-03-07] MEDS: Losartan 25 MG TAB PO SCH (09:15)
[2021-03-07] MEDS: Cyanocobalamin (Vitamin B-12) 1,000 MCG TAB PO SCH (09:15)
[2021-03-07] MEDS: Thiamine 100 MG TAB PO SCH (09:16)
[2021-03-07] MEDS: Metoprolol Tartrate 25 MG TAB PO SCH ×2 (09:16→21:20)
[2021-03-07] MEDS: levETIRAcetam in NS 1,500 MG in Premix Bag 1 BAG IVPB SCH ×2 (09:59→21:49)
[2021-03-07] MEDS: Enoxaparin Sodium 40 MG/0.4 ML SYRINGE SC SCH (09:59)
[2021-03-07] MEDS: Pantoprazole 40 MG VIAL IVP SCH ×2 (10:00→21:20)
[2021-03-07] MEDS: Lacosamide 200 MG in Sodium Chloride 0.9% 50 ML IVPB SCH ×2 (10:24→20:33)
[2021-03-07] MEDS: Valproate Sodium 250 MG in Sodium Chloride 0.9% 100 ML IVPB SCH ×2 (15:29→21:20)
[2021-03-07 15:48] LABS: Potassium 3.6 mmol/L (3.5-5.1)
[2021-03-07] MEDS ORDERED: Thiamine 100 MG TAB PO SCH (17:09)
[2021-03-07] MEDS ORDERED: D5W-AA 4.25% with LYTES 1,000 ML IV SCH (17:15)
[2021-03-07] MEDS: Amino Acids 4.25 %/Dextrose 5% 1,000 ML IV SCH (17:41)
[2021-03-07] MEDS: Thiamine HCl 200 MG/2 ML VIAL SLOW IVP SCH (18:42)
[2021-03-07] MEDS: Atorvastatin Calcium 20 MG TAB PO SCH (21:20)
[2021-03-08] MEDS: Fosphenytoin Sodium 100 MG in Sodium Chloride 0.9% 50 ML IVPB SCH ×4 (05:10→22:59)
[2021-03-08] MEDS: Valproate Sodium 250 MG in Sodium Chloride 0.9% 100 ML IVPB SCH (08:29)
[2021-03-08] MEDS: Enoxaparin Sodium 40 MG/0.4 ML SYRINGE SC SCH (08:29)
[2021-03-08] MEDS: Pantoprazole 40 MG VIAL IVP SCH ×2 (08:30→20:14)
[2021-03-08] MEDS ORDERED: Amino Acids 4.25 %/Dextrose 5% 2,000 ML BAG IV SCH (09:00)
[2021-03-08] MEDS: Amino Acids 4.25 %/Dextrose 5% 1,000 ML IV SCH ×2 (09:20→20:09)
[2021-03-08] MEDS: Cyanocobalamin (Vitamin B-12) 1,000 MCG TAB PO SCH (10:57)
[2021-03-08] MEDS: Aspirin Chewable 81 MG TAB PO SCH (10:57)
[2021-03-08] MEDS: Metoprolol Tartrate 25 MG TAB PO SCH ×2 (10:58→20:08)
[2021-03-08] MEDS: Folic Acid 1 MG TAB PO SCH (10:58)
[2021-03-08] MEDS: Losartan 25 MG TAB PO SCH (10:58)
[2021-03-08] MEDS: Lacosamide 200 MG in Sodium Chloride 0.9% 50 ML IVPB SCH ×2 (11:01→22:14)
[2021-03-08] MEDS ORDERED: Valproate Sodium 500 MG/5 ML VIAL IVPB SCH (11:51)
[2021-03-08] MEDS: levETIRAcetam in NS 1,500 MG in Premix Bag 1 BAG IVPB SCH ×2 (12:13→20:14)
[2021-03-08] MEDS ORDERED: Valproate Sodium 500 MG in Sodium Chloride 0.9% 100 ML IVPB SCH (12:30)
[2021-03-08] MEDS ORDERED: Valproate Sodium 1,000 MG in Sodium Chloride 0.9% 100 ML IVPB SCH (12:45)
[2021-03-08] MEDS: Thiamine HCl 200 MG/2 ML VIAL SLOW IVP SCH (16:49)
[2021-03-08] MEDS: Atorvastatin Calcium 20 MG TAB PO SCH (20:08)
[2021-03-08] MEDS: Valproate Sodium 500 MG in Sodium Chloride 0.9% 100 ML IVPB SCH (21:04)
[2021-03-09] MEDS: Fosphenytoin Sodium 100 MG in Sodium Chloride 0.9% 50 ML IVPB SCH ×2 (04:31→10:17)
[2021-03-09] MEDS: Amino Acids 4.25 %/Dextrose 5% 1,000 ML IV SCH ×2 (07:13→17:38)
[2021-03-09] MEDS: Cyanocobalamin (Vitamin B-12) 1,000 MCG TAB PO SCH (08:58)
[2021-03-09] MEDS: Aspirin Chewable 81 MG TAB PO SCH (08:58)
[2021-03-09] MEDS: Enoxaparin Sodium 40 MG/0.4 ML SYRINGE SC SCH (08:59)
[2021-03-09] MEDS: Folic Acid 1 MG TAB PO SCH (09:00)
[2021-03-09] MEDS: Metoprolol Tartrate 25 MG TAB PO SCH ×2 (09:01→20:13)
[2021-03-09] MEDS: Losartan 25 MG TAB PO SCH (09:01)
[2021-03-09] MEDS: Pantoprazole 40 MG VIAL IVP SCH ×2 (09:01→20:59)
[2021-03-09] MEDS: Valproate Sodium 500 MG in Sodium Chloride 0.9% 100 ML IVPB SCH ×3 (09:02→21:57)
[2021-03-09] MEDS: levETIRAcetam in NS 1,500 MG in Premix Bag 1 BAG IVPB SCH ×2 (09:04→20:14)
[2021-03-09] MEDS ORDERED: HumaLOG 300 UNITS/3 ML VIAL ONE (10:09)
[2021-03-09] MEDS: Lacosamide 200 MG in Sodium Chloride 0.9% 50 ML IVPB SCH ×2 (12:56→20:56)
[2021-03-09] MEDS: Thiamine HCl 200 MG/2 ML VIAL SLOW IVP SCH (17:36)
[2021-03-09] MEDS: Atorvastatin Calcium 20 MG TAB PO SCH (20:13)
[2021-03-10] MEDS: Amino Acids 4.25 %/Dextrose 5% 1,000 ML IV SCH ×2 (05:10→16:13)
[2021-03-10] MEDS: Enoxaparin Sodium 40 MG/0.4 ML SYRINGE SC SCH (09:22)
[2021-03-10] MEDS: Aspirin Chewable 81 MG TAB PO SCH (09:22)
[2021-03-10] MEDS: Folic Acid 1 MG TAB PO SCH (09:22)
[2021-03-10] MEDS: Cyanocobalamin (Vitamin B-12) 1,000 MCG TAB PO SCH (09:22)
[2021-03-10] MEDS: Losartan 25 MG TAB PO SCH (09:23)
[2021-03-10] MEDS: Lacosamide 200 MG in Sodium Chloride 0.9% 50 ML IVPB SCH ×2 (09:23→21:23)
[2021-03-10] MEDS: levETIRAcetam in NS 1,500 MG in Premix Bag 1 BAG IVPB SCH ×2 (09:23→21:16)
[2021-03-10] MEDS: Valproate Sodium 500 MG in Sodium Chloride 0.9% 100 ML IVPB SCH ×3 (09:24→22:32)
[2021-03-10] MEDS: Pantoprazole 40 MG VIAL IVP SCH ×2 (09:24→21:16)
[2021-03-10] MEDS: Metoprolol Tartrate 25 MG TAB PO SCH ×2 (09:24→21:17)
[2021-03-10] MEDS: Thiamine HCl 200 MG/2 ML VIAL SLOW IVP SCH (18:38)
[2021-03-10] MEDS: Atorvastatin Calcium 20 MG TAB PO SCH (21:17)
[2021-03-11] MEDS: Amino Acids 4.25 %/Dextrose 5% 1,000 ML IV SCH (02:52)
[2021-03-11] MEDS: Aspirin Chewable 81 MG TAB PO SCH (08:48)
[2021-03-11] MEDS: Cyanocobalamin (Vitamin B-12) 1,000 MCG TAB PO SCH (08:49)
[2021-03-11] MEDS: Enoxaparin Sodium 40 MG/0.4 ML SYRINGE SC SCH (08:49)
[2021-03-11] MEDS: levETIRAcetam in NS 1,500 MG in Premix Bag 1 BAG IVPB SCH ×2 (08:50→21:16)
[2021-03-11] MEDS: Folic Acid 1 MG TAB PO SCH (08:50)
[2021-03-11] MEDS: Losartan 25 MG TAB PO SCH (08:51)
[2021-03-11] MEDS: Metoprolol Tartrate 25 MG TAB PO SCH ×2 (08:51→19:56)
[2021-03-11] MEDS: Valproate Sodium 500 MG in Sodium Chloride 0.9% 100 ML IVPB SCH ×3 (08:52→22:41)
[2021-03-11] MEDS: Pantoprazole 40 MG VIAL IVP SCH ×2 (10:16→21:18)
[2021-03-11] MEDS: Lacosamide 200 MG in Sodium Chloride 0.9% 50 ML IVPB SCH ×2 (12:08→19:40)
[2021-03-11] MEDS: Atorvastatin Calcium 20 MG TAB PO SCH (19:56)
[2021-03-12] MEDS: Valproate Sodium 500 MG in Sodium Chloride 0.9% 100 ML IVPB SCH ×2 (08:56→16:05)
[2021-03-12] MEDS: levETIRAcetam in NS 1,500 MG in Premix Bag 1 BAG IVPB SCH (08:57)
[2021-03-12] MEDS: Aspirin Chewable 81 MG TAB PO SCH (08:57)
[2021-03-12] MEDS: Cyanocobalamin (Vitamin B-12) 1,000 MCG TAB PO SCH (08:57)
[2021-03-12] MEDS: Losartan 25 MG TAB PO SCH (08:58)
[2021-03-12] MEDS: Folic Acid 1 MG TAB PO SCH (08:58)
[2021-03-12] MEDS: Metoprolol Tartrate 25 MG TAB PO SCH ×2 (08:58→19:40)
[2021-03-12] MEDS: Multivitamin W/ Minerals 1 TAB PO SCH (08:58)
[2021-03-12] MEDS: Thiamine 100 MG TAB PO SCH (08:58)
[2021-03-12] MEDS: Enoxaparin Sodium 40 MG/0.4 ML SYRINGE SC SCH (08:59)
[2021-03-12] MEDS: Lacosamide 200 MG in Sodium Chloride 0.9% 50 ML IVPB SCH (09:31)
[2021-03-12] MEDS: Pantoprazole 40 MG VIAL IVP SCH ×2 (09:31→19:59)
[2021-03-12] MEDS: Lacosamide 50 mg Tablet PO SCH (19:38)
[2021-03-12] MEDS: levETIRAcetam 500 MG TAB PO SCH (19:39)
[2021-03-12] MEDS: Divalproex Sodium DR 500 MG TAB PO SCH (19:39)
[2021-03-12] MEDS: Atorvastatin Calcium 20 MG TAB PO SCH (19:40)
[2021-03-13] MEDS: levETIRAcetam 500 MG TAB PO SCH ×2 (09:04→20:37)
[2021-03-13] MEDS: Multivitamin W/ Minerals 1 TAB PO SCH (09:05)
[2021-03-13] MEDS: Enoxaparin Sodium 40 MG/0.4 ML SYRINGE SC SCH (09:05)
[2021-03-13] MEDS: Folic Acid 1 MG TAB PO SCH (09:06)
[2021-03-13] MEDS: Losartan 25 MG TAB PO SCH (09:06)
[2021-03-13] MEDS: Lacosamide 50 mg Tablet PO SCH ×2 (09:06→20:37)
[2021-03-13] MEDS: Metoprolol Tartrate 25 MG TAB PO SCH ×2 (09:06→20:38)
[2021-03-13] MEDS: Cyanocobalamin (Vitamin B-12) 1,000 MCG TAB PO SCH (09:07)
[2021-03-13] MEDS: Thiamine 100 MG TAB PO SCH (09:07)
[2021-03-13] MEDS: Aspirin Chewable 81 MG TAB PO SCH (09:07)
[2021-03-13] MEDS: Pantoprazole 40 MG VIAL IVP SCH ×2 (09:08→20:36)
[2021-03-13] MEDS: Divalproex Sodium DR 500 MG TAB PO SCH ×2 (09:09→20:37)
[2021-03-13] MEDS ORDERED: Benzonatate 100 MG CAP PO PRN (09:18)
[2021-03-13] MEDS: Atorvastatin Calcium 20 MG TAB PO SCH (20:37)
[2021-03-14] MEDS: Aspirin Chewable 81 MG TAB PO SCH (08:41)
[2021-03-14] MEDS: Losartan 25 MG TAB PO SCH (08:41)
[2021-03-14] MEDS: Lacosamide 50 mg Tablet PO SCH ×2 (08:42→20:24)
[2021-03-14] MEDS: levETIRAcetam 500 MG TAB PO SCH ×2 (08:42→20:24)
[2021-03-14] MEDS: Metoprolol Tartrate 25 MG TAB PO SCH ×2 (08:43→20:25)
[2021-03-14] MEDS: Thiamine 100 MG TAB PO SCH (08:43)
[2021-03-14] MEDS: Multivitamin W/ Minerals 1 TAB PO SCH (08:43)
[2021-03-14] MEDS: Folic Acid 1 MG TAB PO SCH (08:43)
[2021-03-14] MEDS: Cyanocobalamin (Vitamin B-12) 1,000 MCG TAB PO SCH (08:43)
[2021-03-14] MEDS: Divalproex Sodium DR 500 MG TAB PO SCH ×2 (08:44→20:28)
[2021-03-14] MEDS: Enoxaparin Sodium 40 MG/0.4 ML SYRINGE SC SCH (08:45)
[2021-03-14] MEDS: Pantoprazole 40 MG VIAL IVP SCH ×2 (09:51→20:22)
[2021-03-14 12:01] VITALS: BMI 26.5
[2021-03-14] MEDS: Atorvastatin Calcium 20 MG TAB PO SCH (20:26)
[2021-03-15] MEDS: levETIRAcetam 500 MG TAB PO SCH (09:11)
[2021-03-15] MEDS: Cyanocobalamin (Vitamin B-12) 1,000 MCG TAB PO SCH (09:11)
[2021-03-15] MEDS: Thiamine 100 MG TAB PO SCH (09:11)
[2021-03-15] MEDS: Multivitamin W/ Minerals 1 TAB PO SCH (09:11)
[2021-03-15] MEDS: Aspirin Chewable 81 MG TAB PO SCH (09:11)
[2021-03-15] MEDS: Metoprolol Tartrate 25 MG TAB PO SCH (09:13)
[2021-03-15] MEDS: Losartan 25 MG TAB PO SCH (09:13)
[2021-03-15] MEDS: Folic Acid 1 MG TAB PO SCH (09:13)
[2021-03-15] MEDS: Enoxaparin Sodium 40 MG/0.4 ML SYRINGE SC SCH (09:13)
[2021-03-15] MEDS: Lacosamide 50 mg Tablet PO SCH (09:22)
[2021-03-15] MEDS ORDERED: Divalproex Sodium 125 mg Sprinkle Capsule PO SCH ×2 (09:30→21:00)
[2021-03-15 09:59] LABS: #Eosinphils 0.2 thou/uL (0.0-0.7); #Lymphocytes 1.1 thou/uL (1.20-3.40); #Monocytes 0.5 thou/uL (0.11-0.59); %Basophils 0.4 % (0.0-1.0); %Eosinophils 2.9 % (0.0-10.0); %Lymphocytes 16.1 % (21.0-51.0); %Monocytes 6.7 % (0.0-10.0); %Neutrophils 73.9 % (42.0-75.0); Hemoglobin 10.3 g/dL (12.0-16.0); Mean Corpuscular HGB CONC 34.4 g/dL (32.0-36.0); Mean Corpuscular Hemoglobin 31.8 pg (27.0-31.0); Mean Corpuscular Volume 92.5 fL (78.0-98.0); Mean Platelet Volume 7.5 fL (7.4-10.4); Platelet Count 385 thou/uL (130-400); RBC Distribution Width 12.3 % (11.5-14.5); Red Blood Cell (RBC) Count 3.25 mill/uL (4.20-5.40); White Blood Cell (WBC) Count 6.8 thou/uL (4.8-10.8)
[2021-03-15 10:03] LABS: Anion Gap 12 mmol/L (10-20); BUN (Urea Nitrogen) Less than 4 mg/dL (9.8-20.1); Calc. Creatinine Clearance 113 mL/min (70-130); Calcium 10.5 mg/dL (7.8-10.44); Carbon Dioxide 30 mmol/L (23-31); Chloride 100 mmol/L (98-107); Glucose 121 mg/dL (80-115); Sodium 139 mmol/L (136-145)
[2021-03-15] MEDS: Pantoprazole 40 MG VIAL IVP SCH (10:44)
[2021-03-15] MEDS: Divalproex Sodium DR 500 MG TAB PO SCH (10:51)
[2021-03-15] MEDS ORDERED: Potassium Bicarbonate/Cit Ac 20 MEQ TAB PER TUBE SCH (11:00)
[2021-03-15] MEDS ORDERED: Potassium Bicarbonate/Cit Ac 20 MEQ TAB PO SCH (13:00)
[2021-03-15 15:46] VITALS: BP 138/72; TEMP 98.1
== END 2021-03-15 16:45 | DRG 100 ==
LOC: ERS 13:02 → ERHOLD 13:08 → CCU 21:17 → 2SW 03-07 23:08
PROVIDERS: ADMIT Family Medicine; ATTEND Internal Medicine
PROC: 5A1955Z Respiratory Ventilation, Greater than 96 Consecutive Hours (ICD-10-PCS; 2021-02-27)
PROC: 00JU3ZZ Inspection of Spinal Canal, Percutaneous Approach (ICD-10-PCS; 2021-02-27)
PROC: 0D9670Z Drainage of Stomach with Drainage Device, Via Natural or Artificial Opening (ICD-10-PCS; 2021-02-27)
PROC: 3E033XZ Introduction of Vasopressor into Peripheral Vein, Percutaneous Approach (ICD-10-PCS; 2021-02-27)
PROC: 02H633Z Insertion of Infusion Device into Right Atrium, Percutaneous Approach (ICD-10-PCS; 2021-02-27)
PROC: B548ZZA Ultrasonography of Superior Vena Cava, Guidance (ICD-10-PCS; 2021-02-27)
PROC: 5A09357 Assistance with Respiratory Ventilation, Less than 24 Consecutive Hours, Continuous Positive Airway Pressure (ICD-10-PCS; principal; 2021-03-06)
DX: G40.901 Epilepsy, unspecified, not intractable, with status epilepticus (principal); J96.01 Acute respiratory failure with hypoxia; G93.41 Metabolic encephalopathy; I21.A1 Myocardial infarction type 2; R47.01 Aphasia; D64.9 Anemia, unspecified; Z66 Do not resuscitate; F10.10 Alcohol abuse, uncomplicated; Z20.822 Contact with and (suspected) exposure to COVID-19; F32.A Depression, unspecified; I10 Essential (primary) hypertension; F03.90 Unspecified dementia, unspecified severity, without behavioral disturbance, psychotic disturbance, mood disturbance, and anxiety; K21.9 Gastro-esophageal reflux disease without esophagitis; R13.12 Dysphagia, oropharyngeal phase; E83.42 Hypomagnesemia; Z78.1 Physical restraint status; E87.6 Hypokalemia; E11.65 Type 2 diabetes mellitus with hyperglycemia; Z86.73 Personal history of transient ischemic attack (TIA), and cerebral infarction without residual deficits; Z79.899 Other long term (current) drug therapy; Z79.82 Long term (current) use of aspirin
CPT/HCPCS: 36415; 36416; 36556; 36600; 62270; 70450; 70551; 71045; 71260; 72125; 74177; 80048; 80053; 80164; 80177; 80185; 80202; 80306; 80307; 81003; 81015; 82550; 82553; 82607; 82746; 82805; 82945; 83605; 83690; 83735; 83880; 84100; 84157; 84443; 84484; 85007; 85025; 85027; 85610; 85730; 86780; 87040; 87070; 87086; 87205; 87389; 89051; 93005; 93306; 94002; 94003; 94640; 94660; 94760; 95712; 95819; 95957; 96365; 96366; 96367; 96368; 96375; 96376; C9113; C9254; J0696; J1650; J1815; J1953; J2060; J2704; J3010; J3370; J3411; J3475; J3480; J3490; J7050; J7070; Q2009; Q9967; U0002; U0003; U0005

== ENCOUNTER 2021-03-30 11:14 | Outpatient (CLI) | payer BC | END 2021-03-30 11:15 | disposition home or self-care (01) | LOC: CT 11:14 | PROVIDERS: ATTEND Internal Medicine | DX: R41.0 Disorientation, unspecified (principal); W19.XXXA Unspecified fall, initial encounter | CPT/HCPCS: 70450 ==

== ENCOUNTER 2021-06-13 17:01 | Inpatient (IN) | payer BC ==
[2021-06-13] MEDS ORDERED: Vancomycin 1 GM/200 ML BAG ONE (17:34)
[2021-06-13] MEDS ORDERED: cefTRIAXone\\ROCEPHIN 1 GM VIAL ONE (17:34)
[2021-06-13 17:48] LABS: #Lymphocytes 2.3 thou/uL (1.20-3.40); #Monocytes 1.1 thou/uL (0.11-0.59); #Neutrophils 6.4 thou/uL (1.40-6.50); %Basophils 0.4 % (0.0-1.0); %Eosinophils 0.4 % (0.0-10.0); %Lymphocytes 23.3 % (21.0-51.0); %Neutrophils 64.9 % (42.0-75.0); Hemoglobin 12.4 g/dL (12.0-16.0); Mean Corpuscular HGB CONC 33.9 g/dL (32.0-36.0); Mean Corpuscular Hemoglobin 30.5 pg (27.0-31.0); Mean Corpuscular Volume 89.9 fL (78.0-98.0); Mean Platelet Volume 7.1 fL (7.4-10.4); Platelet Count 337 thou/uL (130-400); RBC Distribution Width 11.9 % (11.5-14.5); Red Blood Cell (RBC) Count 4.07 mill/uL (4.20-5.40); White Blood Cell (WBC) Count 9.8 thou/uL (4.8-10.8)
[2021-06-13 18:00] LABS: Bilirubin Negative (Negative); Blood, Urine Negative (Negative); Clarity Clear (Clear); Glucose, Urine (Dipstick) Normal (Negative); Ketone, Urine 20 mg/dL (Negative); Leukocyte Negative Leu/uL (Negative); Nitrite Negative (Negative); Protein, Urine (Dipstick) 20 mg/dL (Neg-Trace); Specific Gravity, Urine 1.029 (1.002-1.036); pH, Urine 6.5 (5.0-9.0)
[2021-06-13 18:46] LABS: ALT (SGPT) 12 U/L (8-55); AST (SGOT) 36 U/L (5-34); Alkaline Phosphatase 79 U/L (40-110); Anion Gap 18 mmol/L (10-20); BUN (Urea Nitrogen) 16 mg/dL (9.8-20.1); Bilirubin, Total 0.4 mg/dL (0.2-1.2); Calc. Creatinine Clearance 0 mL/min (70-130); Calcium 10.3 mg/dL (7.8-10.44); Carbon Dioxide 29 mmol/L (23-31); Chloride 95 mmol/L (98-107); Globulin 3.6 g/dL (2.4-3.5); Glucose 118 mg/dL (80-115); Potassium 4.1 mmol/L (3.5-5.1); Protein, Total 7.6 g/dL (5.8-8.1); Sodium 138 mmol/L (136-145)
[2021-06-13 19:40] LABS: SARS-CoV-2 NAA Rapid Test Not Detected (NotDetected)
[2021-06-13] MEDS ORDERED: Sodium Chloride 0.9% 1,000 ML IV SCH (21:30)
[2021-06-13 23:02] VITALS: BMI 24.2
[2021-06-14] MEDS ORDERED: Divalproex Sodium 250 MG (DR) TAB PO SCH (00:30)
[2021-06-14] MEDS ORDERED: levETIRAcetam 500 MG TAB PO SCH (00:30)
[2021-06-14] MEDS ORDERED: Ondansetron PF 4 MG/2 ML Vial IVP PRN (02:43)
[2021-06-14 03:16] LABS: #Eosinphils 0.1 thou/uL (0.0-0.7); #Lymphocytes 1.7 thou/uL (1.20-3.40); #Neutrophils 5.3 thou/uL (1.40-6.50); %Basophils 0.4 % (0.0-1.0); %Eosinophils 0.8 % (0.0-10.0); %Lymphocytes 20.7 % (21.0-51.0); %Monocytes 12.1 % (0.0-10.0); Mean Corpuscular HGB CONC 33.7 g/dL (32.0-36.0); Mean Corpuscular Hemoglobin 30.7 pg (27.0-31.0); Mean Corpuscular Volume 91.1 fL (78.0-98.0); Mean Platelet Volume 6.6 fL (7.4-10.4); Platelet Count 270 thou/uL (130-400); RBC Distribution Width 11.6 % (11.5-14.5); Red Blood Cell (RBC) Count 3.24 mill/uL (4.20-5.40); White Blood Cell (WBC) Count 8.1 thou/uL (4.8-10.8)
[2021-06-14 03:38] LABS: Anion Gap 13 mmol/L (10-20); BUN (Urea Nitrogen) 9 mg/dL (9.8-20.1); Calc. Creatinine Clearance 109 mL/min (70-130); Calcium 9.3 mg/dL (7.8-10.44); Carbon Dioxide 29 mmol/L (23-31); Chloride 97 mmol/L (98-107); Glucose 115 mg/dL (80-115); Sodium 136 mmol/L (136-145)
[2021-06-14 03:43] LABS: Potassium 2.7 mmol/L (3.5-5.1)
[2021-06-14] MEDS ORDERED: Potassium Chloride 20 MEQ TAB PO SCH (04:15)
[2021-06-14 04:19] LABS: Amphetamine Not Detected (NotDetected); Barbiturates Screen Not Detected (NotDetected); Benzodiazepine Screen Not Detected (NotDetected); Cocaine Metabolite Screen Not Detected (NotDetected); Methadone Not Detected (NotDetected); Methamphetamine Not Detected (NotDetected); Opiate Screen Not Detected (NotDetected); Oxycodone Screen Not Detected (NotDetected); Phencyclidine (PCP) Not Detected (NotDetected); THC/Cannabinoid Screen Not Detected (NotDetected); Tricyclic Screen Not Detected (NotDetected)
[2021-06-14 05:10] LABS: Magnesium 1.5 mg/dL (1.6-2.6)
[2021-06-14] MEDS: Vancomycin 1 GM in Premix Bag 1 BAG IVPB SCH ×2 (05:21→17:41)
[2021-06-14] MEDS ORDERED: Hydrochlorothiazide 25 MG TAB PO SCH (09:00)
[2021-06-14] MEDS ORDERED: Non-Formulary Item 1 EACH (Hydrochlorothiazide [Hydrochlorothiazide] 12.5 MG Tablet) PO SCH (09:00)
[2021-06-14] MEDS: Multivit, Therapeutic 1 TAB PO SCH (10:08)
[2021-06-14] MEDS: Magnesium Oxide 250 MG TAB PO SCH (10:08)
[2021-06-14] MEDS: Cefepime 1 GM in Sodium Chloride 0.9% 100 ML IVPB SCH ×2 (10:08→20:48)
[2021-06-14] MEDS: Losartan 25 MG TAB PO SCH (10:08)
[2021-06-14] MEDS: Folic Acid 1 MG TAB PO SCH (10:09)
[2021-06-14] MEDS: Cyanocobalamin (Vitamin B-12) 1,000 MCG TAB PO SCH (10:09)
[2021-06-14] MEDS: Thiamine 100 MG TAB PO SCH (10:09)
[2021-06-14] MEDS: Aspirin 325 MG TAB PO SCH (10:09)
[2021-06-14] MEDS: Lacosamide 50 mg Tablet PO SCH ×2 (10:10→20:47)
[2021-06-14] MEDS: Enoxaparin Sodium 40 MG/0.4 ML SYRINGE SC SCH (10:10)
[2021-06-14] MEDS: Potassium Chloride 20 MEQ TAB PO SCH ×2 (14:34→17:41)
[2021-06-14] MEDS: Acetaminophen 325 MG TAB PO PRN (14:34)
[2021-06-14] MEDS: Divalproex Sodium 250 MG (DR) TAB PO SCH (20:47)
[2021-06-14] MEDS: levETIRAcetam 500 MG TAB PO SCH (20:47)
[2021-06-14] MEDS: Atorvastatin Calcium 20 MG TAB PO SCH (20:48)
[2021-06-15] MEDS: Potassium Chloride 20 MEQ TAB PO SCH (01:00)
[2021-06-15] MEDS ORDERED: hydrALAZINE 20 MG/ML VIAL ONE (02:03)
[2021-06-15] MEDS ORDERED: hydrALAZINE 20 MG/ML VIAL SLOW IVP PRN (06:15)
[2021-06-15 06:38] LABS: Vancomycin, Trough 9.4 ug/mL
[2021-06-15 06:39] LABS: Anion Gap 14 mmol/L (10-20); BUN (Urea Nitrogen) 5 mg/dL (9.8-20.1); Calc. Creatinine Clearance 116 mL/min (70-130); Calcium 9.9 mg/dL (7.8-10.44); Carbon Dioxide 26 mmol/L (23-31); Chloride 97 mmol/L (98-107); Glucose 112 mg/dL (80-115); Magnesium 1.2 mg/dL (1.6-2.6); Potassium 3.7 mmol/L (3.5-5.1); Sodium 133 mmol/L (136-145)
[2021-06-15 06:45] LABS: #Eosinphils 0.1 thou/uL (0.0-0.7); #Lymphocytes 1.6 thou/uL (1.20-3.40); #Monocytes 0.7 thou/uL (0.11-0.59); #Neutrophils 5.1 thou/uL (1.40-6.50); %Basophils 0.4 % (0.0-1.0); %Eosinophils 0.8 % (0.0-10.0); %Lymphocytes 20.7 % (21.0-51.0); %Monocytes 9.9 % (0.0-10.0); %Neutrophils 68.2 % (42.0-75.0); Hemoglobin 10.4 g/dL (12.0-16.0); Mean Corpuscular HGB CONC 35.7 g/dL (32.0-36.0); Mean Corpuscular Hemoglobin 31.7 pg (27.0-31.0); Mean Platelet Volume 6.8 fL (7.4-10.4); Platelet Count 288 thou/uL (130-400); RBC Distribution Width 11.4 % (11.5-14.5); Red Blood Cell (RBC) Count 3.28 mill/uL (4.20-5.40); White Blood Cell (WBC) Count 7.5 thou/uL (4.8-10.8)
[2021-06-15] MEDS: Vancomycin 1 GM in Premix Bag 1 BAG IVPB SCH (07:26)
[2021-06-15] MEDS ORDERED: Amlodipine 10 MG TAB PO SCH (09:00)
[2021-06-15] MEDS: Cefepime 1 GM in Sodium Chloride 0.9% 100 ML IVPB SCH (09:36)
[2021-06-15] MEDS: Enoxaparin Sodium 40 MG/0.4 ML SYRINGE SC SCH (09:37)
[2021-06-15] MEDS: Magnesium Oxide 250 MG TAB PO SCH (09:37)
[2021-06-15] MEDS: Folic Acid 1 MG TAB PO SCH (09:37)
[2021-06-15] MEDS: Cyanocobalamin (Vitamin B-12) 1,000 MCG TAB PO SCH (09:38)
[2021-06-15] MEDS: Aspirin 325 MG TAB PO SCH (09:38)
[2021-06-15] MEDS: Multivit, Therapeutic 1 TAB PO SCH (09:38)
[2021-06-15] MEDS: Lacosamide 50 mg Tablet PO SCH ×2 (09:38→20:31)
[2021-06-15] MEDS: Divalproex Sodium 125 mg Sprinkle Capsule PO SCH (09:39)
[2021-06-15] MEDS: Thiamine 100 MG TAB PO SCH (09:39)
[2021-06-15] MEDS: levETIRAcetam 500 MG TAB PO SCH ×2 (09:39→20:30)
[2021-06-15] MEDS: Losartan 25 MG TAB PO SCH (09:40)
[2021-06-15] MEDS: Amlodipine 10 MG TAB PO SCH (09:45)
[2021-06-15] MEDS: Acetaminophen 325 MG TAB PO PRN (15:20)
[2021-06-15] MEDS ORDERED: Vancomycin 1.5 GRAM/300 ML BAG 1.5 GM in Premix Bag 1 BAG IVPB SCH (18:00)
[2021-06-15] MEDS: Divalproex Sodium 250 MG (DR) TAB PO SCH (20:30)
[2021-06-15] MEDS: Atorvastatin Calcium 20 MG TAB PO SCH (20:31)
[2021-06-16 06:09] LABS: #Eosinphils 0.1 thou/uL (0.0-0.7); #Lymphocytes 1.7 thou/uL (1.20-3.40); #Monocytes 0.6 thou/uL (0.11-0.59); #Neutrophils 3.6 thou/uL (1.40-6.50); %Basophils 0.4 % (0.0-1.0); %Eosinophils 2.4 % (0.0-10.0); %Lymphocytes 27.5 % (21.0-51.0); %Monocytes 10.3 % (0.0-10.0); %Neutrophils 59.4 % (42.0-75.0); Hemoglobin 10.5 g/dL (12.0-16.0); Mean Corpuscular HGB CONC 33.8 g/dL (32.0-36.0); Mean Corpuscular Hemoglobin 30.4 pg (27.0-31.0); Mean Corpuscular Volume 89.8 fL (78.0-98.0); Mean Platelet Volume 6.4 fL (7.4-10.4); Platelet Count 319 thou/uL (130-400); RBC Distribution Width 11.4 % (11.5-14.5); Red Blood Cell (RBC) Count 3.47 mill/uL (4.20-5.40)
[2021-06-16 06:30] LABS: Anion Gap 12 mmol/L (10-20); BUN (Urea Nitrogen) 7 mg/dL (9.8-20.1); Calc. Creatinine Clearance 104 mL/min (70-130); Calcium 9.9 mg/dL (7.8-10.44); Carbon Dioxide 30 mmol/L (23-31); Chloride 96 mmol/L (98-107); Glucose 99 mg/dL (80-115); Magnesium 1.6 mg/dL (1.6-2.6); Potassium 3.2 mmol/L (3.5-5.1); Sodium 135 mmol/L (136-145)
[2021-06-16] MEDS: Aspirin 325 MG TAB PO SCH (08:56)
[2021-06-16] MEDS: Cyanocobalamin (Vitamin B-12) 1,000 MCG TAB PO SCH (08:56)
[2021-06-16] MEDS: Magnesium Oxide 250 MG TAB PO SCH (08:56)
[2021-06-16] MEDS: Folic Acid 1 MG TAB PO SCH (08:57)
[2021-06-16] MEDS: Divalproex Sodium 125 mg Sprinkle Capsule PO SCH (08:57)
[2021-06-16] MEDS: Losartan 25 MG TAB PO SCH (08:57)
[2021-06-16] MEDS: Lacosamide 50 mg Tablet PO SCH ×2 (08:57→20:28)
[2021-06-16] MEDS: Amlodipine 10 MG TAB PO SCH (08:58)
[2021-06-16] MEDS: levETIRAcetam 500 MG TAB PO SCH ×2 (08:58→20:28)
[2021-06-16] MEDS: Thiamine 100 MG TAB PO SCH (08:58)
[2021-06-16] MEDS: Multivit, Therapeutic 1 TAB PO SCH (08:59)
[2021-06-16] MEDS: Enoxaparin Sodium 40 MG/0.4 ML SYRINGE SC SCH (09:00)
[2021-06-16] MEDS: Atorvastatin Calcium 20 MG TAB PO SCH (20:28)
[2021-06-16] MEDS: Divalproex Sodium 250 MG (DR) TAB PO SCH (20:29)
[2021-06-17 06:44] LABS: Magnesium 1.7 mg/dL (1.6-2.6)
[2021-06-17] MEDS: Losartan 25 MG TAB PO SCH (09:07)
[2021-06-17] MEDS: Folic Acid 1 MG TAB PO SCH (09:07)
[2021-06-17] MEDS: Cyanocobalamin (Vitamin B-12) 1,000 MCG TAB PO SCH (09:07)
[2021-06-17] MEDS: Enoxaparin Sodium 40 MG/0.4 ML SYRINGE SC SCH (09:07)
[2021-06-17] MEDS: levETIRAcetam 500 MG TAB PO SCH (09:07)
[2021-06-17] MEDS: Magnesium Oxide 250 MG TAB PO SCH (09:08)
[2021-06-17] MEDS: Lacosamide 50 mg Tablet PO SCH (09:08)
[2021-06-17] MEDS: Multivit, Therapeutic 1 TAB PO SCH (09:08)
[2021-06-17] MEDS: Thiamine 100 MG TAB PO SCH (09:08)
[2021-06-17] MEDS: Aspirin 325 MG TAB PO SCH (09:08)
[2021-06-17] MEDS: Amlodipine 10 MG TAB PO SCH (09:08)
[2021-06-17] MEDS: Divalproex Sodium 125 mg Sprinkle Capsule PO SCH (09:08)
[2021-06-17 13:37] VITALS: BP 123/78; TEMP 98.2
== END 2021-06-17 14:39 | DRG 100 ==
LOC: ERS 17:01 → T4-B 19:04
PROVIDERS: ADMIT Internal Medicine; ATTEND Internal Medicine
DX: G40.909 Epilepsy, unspecified, not intractable, without status epilepticus (principal); G93.41 Metabolic encephalopathy; Z20.822 Contact with and (suspected) exposure to COVID-19; I10 Essential (primary) hypertension; E78.5 Hyperlipidemia, unspecified; F32.A Depression, unspecified; F41.9 Anxiety disorder, unspecified; E87.6 Hypokalemia; E83.42 Hypomagnesemia; F10.10 Alcohol abuse, uncomplicated; F03.90 Unspecified dementia, unspecified severity, without behavioral disturbance, psychotic disturbance, mood disturbance, and anxiety; G93.89 Other specified disorders of brain; Z87.891 Personal history of nicotine dependence; Z79.82 Long term (current) use of aspirin; Z79.899 Other long term (current) drug therapy
CPT/HCPCS: 36415; 70450; 71045; 80048; 80053; 80164; 80202; 80306; 81003; 82140; 83605; 83735; 83880; 84443; 84484; 85025; 87040; 87086; 87804; 93005; 95712; 95819; 95957; J0360; J0692; J0696; J1650; J3370; J3490; J7050; U0002

== ENCOUNTER 2021-09-30 18:54 | Inpatient (IN) | payer BC, MEDICARE ==
[~2021-09-30 18:54] MED LIST changes: -FLU VACC QS2021-22(6MOS UP)/PF 60 MCG/0.5 ML SYRINGE IM ONE
[2021-09-30 19:23] LABS: #Eosinphils 0.2 thou/uL (0.0-0.7); #Lymphocytes 4.1 thou/uL (1.20-3.40); #Monocytes 0.8 thou/uL (0.11-0.59); #Neutrophils 4.2 thou/uL (1.40-6.50); %Basophils 0.2 % (0.0-1.0); %Eosinophils 2.1 % (0.0-10.0); %Lymphocytes 44.6 % (21.0-51.0); %Monocytes 8.3 % (0.0-10.0); %Neutrophils 44.9 % (42.0-75.0); Hemoglobin 11.8 g/dL (12.0-16.0); Mean Corpuscular HGB CONC 32.7 g/dL (32.0-36.0); Mean Corpuscular Hemoglobin 30.8 pg (27.0-31.0); Mean Platelet Volume 7.2 fL (7.4-10.4); Platelet Count 201 thou/uL (130-400); Red Blood Cell (RBC) Count 3.85 mill/uL (4.20-5.40); White Blood Cell (WBC) Count 9.3 thou/uL (4.8-10.8)
[2021-09-30 19:35] LABS: INR-International Normal Ratio 1.1; PTT 27.3 sec (22.9-36.1); Prothrombin Time 13.9 sec (12.0-14.7)
[2021-09-30] MEDS ORDERED: Aspirin 325 MG TAB ONE (19:45)
[2021-09-30 19:51] LABS: ALT (SGPT) Less than 7 U/L (8-55); AST (SGOT) 11 U/L (5-34); Albumin 4.3 g/dL (3.4-4.8); Alkaline Phosphatase 68 U/L (40-110); Anion Gap 22 mmol/L (10-20); BUN (Urea Nitrogen) 10 mg/dL (9.8-20.1); Bilirubin, Total 0.5 mg/dL (0.2-1.2); Calc. Creatinine Clearance 0 mL/min (70-130); Calcium 9.5 mg/dL (7.8-10.44); Carbon Dioxide 21 mmol/L (23-31); Chloride 95 mmol/L (98-107); Globulin 2.6 g/dL (2.4-3.5); Glucose 148 mg/dL (80-115); Potassium 4.1 mmol/L (3.5-5.1); Protein, Total 6.9 g/dL (5.8-8.1); Sodium 134 mmol/L (136-145)
[2021-09-30] MEDS ORDERED: Lorazepam 2 MG/ML VIAL ONE (20:16)
[2021-09-30 22:28] LABS: Bilirubin Negative (Negative); Blood, Urine Trace (Negative); Clarity Turbid (Clear); Glucose, Urine (Dipstick) Normal (Negative); Ketone, Urine Negative (Negative); Leukocyte 500 Leu/uL (Negative); Nitrite Negative (Negative); Protein, Urine (Dipstick) 20 mg/dL (Neg-Trace); RBC/HPF 0-3 HPF (0-3); Specific Gravity, Urine 1.033 (1.002-1.036); Squamous Epithelial None Seen HPF (0-3); Urobilinogen Normal mg/dL (Less than 2); WBC/HPF Greater than 50 HPF (0-3)
[2021-09-30 22:30] LABS: Bacteria/HPF 1+ HPF (None Seen)
[2021-09-30 23:00] LABS: CK (CPK) 71 U/L (29-168)
[2021-09-30 23:14] VITALS: BMI 26.3
[2021-10-01] MEDS ORDERED: Ondansetron PF 4 MG/2 ML Vial IVP PRN (02:45)
[2021-10-01] MEDS ORDERED: Acetaminophen 650 MG Suppository PR PRN (02:45)
[2021-10-01] MEDS ORDERED: Sodium Chloride 0.9% 1,000 ML IV SCH (02:45)
[2021-10-01] MEDS ORDERED: Bisacodyl 10 MG SUPP PR PRN (02:45)
[2021-10-01] MEDS ORDERED: Lorazepam 2 MG/ML VIAL SLOW IVP PRN (02:50)
[2021-10-01] MEDS ORDERED: Artificial Tear Sol 15 ML BOT EA EYE PRN (02:52)
[2021-10-01] MEDS ORDERED: Moisturizing Cream (Eucerin) 113 GM JAR TOP PRN (02:52)
[2021-10-01] MEDS ORDERED: Pantoprazole 40 MG VIAL IVP SCH ×2 (03:22→21:00)
[2021-10-01 03:39] LABS: #Lymphocytes 1.6 thou/uL (1.20-3.40); #Monocytes 0.4 thou/uL (0.11-0.59); #Neutrophils 4.3 thou/uL (1.40-6.50); %Basophils 0.7 % (0.0-1.0); %Eosinophils 0.5 % (0.0-10.0); %Lymphocytes 25.2 % (21.0-51.0); %Monocytes 6.6 % (0.0-10.0); %Neutrophils 67.1 % (42.0-75.0); Hemoglobin 11.8 g/dL (12.0-16.0); Mean Corpuscular HGB CONC 33.9 g/dL (32.0-36.0); Mean Corpuscular Hemoglobin 31.7 pg (27.0-31.0); Mean Corpuscular Volume 93.7 fL (78.0-98.0); Mean Platelet Volume 7.1 fL (7.4-10.4); Platelet Count 197 thou/uL (130-400); RBC Distribution Width 12.7 % (11.5-14.5); Red Blood Cell (RBC) Count 3.71 mill/uL (4.20-5.40); White Blood Cell (WBC) Count 6.4 thou/uL (4.8-10.8)
[2021-10-01] MEDS: cefTRIAXone\\ROCEPHIN 2 GM in Sodium Chloride 0.9% 100 ML IVPB SCH (03:59)
[2021-10-01 04:13] LABS: ALT (SGPT) Less than 7 U/L (8-55); AST (SGOT) 12 U/L (5-34); Albumin 3.7 g/dL (3.4-4.8); Alkaline Phosphatase 59 U/L (40-110); Anion Gap 13 mmol/L (10-20); BUN (Urea Nitrogen) 7 mg/dL (9.8-20.1); Bilirubin, Total 0.4 mg/dL (0.2-1.2); Calc. Creatinine Clearance 104 mL/min (70-130); Calcium 9.5 mg/dL (7.8-10.44); Carbon Dioxide 26 mmol/L (23-31); Chloride 100 mmol/L (98-107); Globulin 2.7 g/dL (2.4-3.5); Glucose 121 mg/dL (80-115); Potassium 3.8 mmol/L (3.5-5.1); Protein, Total 6.4 g/dL (5.8-8.1); Sodium 135 mmol/L (136-145)
[2021-10-01] MEDS ORDERED: Melatonin 3 MG TAB PO PRN (16:59)
[2021-10-01] MEDS: Divalproex Sodium 250 MG (DR) TAB PO SCH (19:56)
[2021-10-01] MEDS: levETIRAcetam 500 MG TAB PO SCH (19:57)
[2021-10-01] MEDS: Atorvastatin Calcium 20 MG TAB PO SCH (19:57)
[2021-10-02] MEDS: cefTRIAXone\\ROCEPHIN 2 GM in Sodium Chloride 0.9% 100 ML IVPB SCH (03:27)
[2021-10-02 06:22] LABS: Anion Gap 12 mmol/L (10-20); BUN (Urea Nitrogen) 6 mg/dL (9.8-20.1); Calc. Creatinine Clearance 103 mL/min (70-130); Calcium 9.5 mg/dL (7.8-10.44); Carbon Dioxide 29 mmol/L (23-31); Chloride 101 mmol/L (98-107); Glucose 91 mg/dL (80-115); Potassium 3.4 mmol/L (3.5-5.1); Sodium 139 mmol/L (136-145)
[2021-10-02] MEDS ORDERED: Electrolyte Replacement Protocol 1 EACH FS SCH (06:45)
[2021-10-02] MEDS: Aspirin 325 MG TAB PO SCH (08:50)
[2021-10-02] MEDS: levETIRAcetam 500 MG TAB PO SCH ×2 (08:51→21:17)
[2021-10-02] MEDS: Divalproex Sodium 250 MG (DR) TAB PO SCH (08:51)
[2021-10-02] MEDS ORDERED: Potassium Chloride 20 MEQ TAB PO SCH (09:00)
[2021-10-02] MEDS ORDERED: Losartan 25 MG TAB PO SCH ×2 (10:53→11:00)
[2021-10-02 13:42] LABS: Potassium 3.8 mmol/L (3.5-5.1)
[2021-10-02] MEDS ORDERED: AMOXicillin 250 MG CAP PO SCH (15:30)
[2021-10-02] MEDS: Divalproex Sodium DR 500 MG TAB PO SCH (17:46)
[2021-10-02] MEDS ORDERED: Divalproex Sodium DR 500 MG TAB PO SCH (21:00)
[2021-10-02] MEDS: Atorvastatin Calcium 20 MG TAB PO SCH (21:17)
[2021-10-02] MEDS: AMOXicillin 250 MG CAP PO SCH (21:17)
[2021-10-03] MEDS: levETIRAcetam 500 MG TAB PO SCH ×2 (09:10→21:41)
[2021-10-03] MEDS: Aspirin 325 MG TAB PO SCH (09:10)
[2021-10-03] MEDS: Divalproex Sodium DR 500 MG TAB PO SCH ×2 (09:10→21:40)
[2021-10-03] MEDS: Losartan 25 MG TAB PO SCH (09:10)
[2021-10-03] MEDS: AMOXicillin 250 MG CAP PO SCH ×3 (09:11→21:41)
[2021-10-03] MEDS: Atorvastatin Calcium 20 MG TAB PO SCH (21:41)
[2021-10-04 05:31] LABS: ALT (SGPT) Less than 7 U/L (8-55); AST (SGOT) 7 U/L (5-34); Albumin 3.6 g/dL (3.4-4.8); Alkaline Phosphatase 56 U/L (40-110); Anion Gap 11 mmol/L (10-20); BUN (Urea Nitrogen) 7 mg/dL (9.8-20.1); Bilirubin, Total 0.7 mg/dL (0.2-1.2); Calc. Creatinine Clearance 103 mL/min (70-130); Calcium 9.4 mg/dL (7.8-10.44); Carbon Dioxide 28 mmol/L (23-31); Chloride 98 mmol/L (98-107); Globulin 2.5 g/dL (2.4-3.5); Glucose 94 mg/dL (80-115); Potassium 3.3 mmol/L (3.5-5.1); Protein, Total 6.1 g/dL (5.8-8.1); Sodium 134 mmol/L (136-145)
[2021-10-04] MEDS ORDERED: Lacosamide 50 mg Tablet PO SCH (09:00)
[2021-10-04] MEDS: Aspirin 325 MG TAB PO SCH (09:15)
[2021-10-04] MEDS: AMOXicillin 250 MG CAP PO SCH ×2 (09:15→16:06)
[2021-10-04] MEDS ORDERED: Potassium Chloride 20 MEQ TAB PO SCH (09:15)
[2021-10-04] MEDS: Divalproex Sodium DR 500 MG TAB PO SCH (09:15)
[2021-10-04] MEDS: levETIRAcetam 500 MG TAB PO SCH (09:16)
[2021-10-04] MEDS: Losartan 25 MG TAB PO SCH (09:16)
[2021-10-04 15:49] VITALS: BP 111/59; TEMP 99.3
== END 2021-10-04 19:02 | DRG 101 ==
LOC: ERS 18:54 → NEURO 20:39
PROVIDERS: ADMIT Emergency Medicine; ATTEND Emergency Medicine
DX: G40.901 Epilepsy, unspecified, not intractable, with status epilepticus (principal); N30.00 Acute cystitis without hematuria; I50.32 Chronic diastolic (congestive) heart failure; Z66 Do not resuscitate; B95.2 Enterococcus as the cause of diseases classified elsewhere; E87.6 Hypokalemia; E78.5 Hyperlipidemia, unspecified; I11.0 Hypertensive heart disease with heart failure; F32.A Depression, unspecified; G83.84 Todd's paralysis (postepileptic); F41.9 Anxiety disorder, unspecified; Z87.891 Personal history of nicotine dependence; Z86.73 Personal history of transient ischemic attack (TIA), and cerebral infarction without residual deficits; Z79.899 Other long term (current) drug therapy; Z79.82 Long term (current) use of aspirin; Z98.890 Other specified postprocedural states
CPT/HCPCS: 36415; 36416; 51701; 70450; 70496; 70498; 70551; 80048; 80053; 80164; 80177; 81003; 81015; 82550; 84484; 85025; 85610; 85730; 87040; 87077; 87086; 87186; 93005; 93306; 95712; 95819; 95957; 96374; C9113; J0696; J2060; J3490; J7050; Q9967

== ENCOUNTER 2021-10-31 12:25 | Outpatient (CLI) | payer MEDICARE | END 2021-10-31 12:26 | disposition home or self-care (01) | LOC: EEG 12:25 | PROVIDERS: ATTEND Psychiatry & Neurology Neurology | DX: G40.001 Localization-related (focal) (partial) idiopathic epilepsy and epileptic syndromes with seizures of localized onset, not intractable, with status epilepticus (principal) | CPT/HCPCS: 95816; 95957 ==

== ENCOUNTER 2021-12-11 16:22 | Inpatient (IN) | payer MEDICARE ==
[2021-12-11] MEDS ORDERED: levETIRAcetam 500 MG/5 ML VIAL ONE ×2 (16:35→16:48)
[2021-12-11] MEDS ORDERED: Lorazepam (BATCHED) 2 MG/ML SYR ONE (16:41)
[2021-12-11 16:46] LABS: #Lymphocytes 1.3 thou/uL (1.20-3.40); #Monocytes 0.4 thou/uL (0.11-0.59); #Neutrophils 5.4 thou/uL (1.40-6.50); %Basophils 0.1 % (0.0-1.0); %Eosinophils 0.6 % (0.0-10.0); %Lymphocytes 17.8 % (21.0-51.0); %Monocytes 5.5 % (0.0-10.0); Mean Corpuscular HGB CONC 35.1 g/dL (32.0-36.0); Mean Corpuscular Hemoglobin 32.3 pg (27.0-31.0); Mean Corpuscular Volume 92.2 fL (78.0-98.0); Mean Platelet Volume 7.4 fL (7.4-10.4); Platelet Count 143 thou/uL (130-400); RBC Distribution Width 13.7 % (11.5-14.5); Red Blood Cell (RBC) Count 3.72 mill/uL (4.20-5.40); White Blood Cell (WBC) Count 7.1 thou/uL (4.8-10.8)
[2021-12-11] MEDS ORDERED: Fosphenytoin Sodium 500 mg/10 ml Vial ONE (16:48)
[2021-12-11] MEDS ORDERED: Midazolam HCl 5 mg/ml Vial ONE (16:48)
[2021-12-11 16:53] LABS: Prothrombin Time 13.3 sec (12.0-14.7)
[2021-12-11 16:54] LABS: PTT 27.4 sec (22.9-36.1)
[2021-12-11 17:07] LABS: ALT (SGPT) 8 U/L (8-55); AST (SGOT) 14 U/L (5-34); Albumin 4.4 g/dL (3.4-4.8); Alkaline Phosphatase 75 U/L (40-110); Anion Gap 15 mmol/L (10-20); BUN (Urea Nitrogen) 9 mg/dL (9.8-20.1); Bilirubin, Total 0.5 mg/dL (0.2-1.2); CK (CPK) 83 U/L (29-168); Calc. Creatinine Clearance 0 mL/min (70-130); Calcium 9.5 mg/dL (7.8-10.44); Carbon Dioxide 27 mmol/L (23-31); Chloride 96 mmol/L (98-107); Estimated GFR 91; Globulin 2.7 g/dL (2.4-3.5); Glucose 159 mg/dL (80-115); Potassium 3.4 mmol/L (3.5-5.1); Protein, Total 7.1 g/dL (5.8-8.1); Sodium 135 mmol/L (136-145)
[2021-12-11 17:19] LABS: Acetaminophen Less than 10.0 mcg/mL (10.0-30.0); Alcohol Less than 10 mg/dL (Less than 10); Salicylate Less than 8.0 mg/dL (15.0-30.0)
[2021-12-11 17:39] LABS: Amphetamine Not Detected (NotDetected); Barbiturates Screen Not Detected (NotDetected); Benzodiazepine Screen Not Detected (NotDetected); Cocaine Metabolite Screen Not Detected (NotDetected); Methadone Not Detected (NotDetected); Methamphetamine Not Detected (NotDetected); Opiate Screen Not Detected (NotDetected); Oxycodone Screen Not Detected (NotDetected); Phencyclidine (PCP) Not Detected (NotDetected); THC/Cannabinoid Screen Not Detected (NotDetected); Tricyclic Screen Not Detected (NotDetected)
[2021-12-11 18:50] LABS: Bilirubin Negative (Negative); Blood, Urine Negative (Negative); Clarity Clear (Clear); Glucose, Urine (Dipstick) Normal (Negative); Ketone, Urine Negative (Negative); Leukocyte Negative Leu/uL (Negative); Nitrite Negative (Negative); Protein, Urine (Dipstick) Negative (Neg-Trace); Specific Gravity, Urine 1.016 (1.002-1.036); Urobilinogen Normal mg/dL (Less than 2)
[2021-12-11 19:29] LABS: SARS-CoV-2 NAA Rapid Test DETECTED (NotDetected)
[2021-12-11] MEDS ORDERED: Ondansetron PF 4 MG/2 ML Vial IVP PRN (19:46)
[2021-12-11] MEDS ORDERED: Acetaminophen 325 MG TAB PO PRN (19:46)
[2021-12-11 19:50] LABS: Lactic Acid 1.3 mmol/L (0.5-2.2)
[2021-12-11] MEDS ORDERED: Lorazepam 2 MG/ML VIAL SLOW IVP PRN (19:54)
[2021-12-11 20:51] LABS: Magnesium 1.5 mg/dL (1.6-2.6)
[2021-12-11] MEDS ORDERED: Lacosamide 200 MG in Sodium Chloride 0.9% 50 ML IVPB SCH (23:59)
[2021-12-12] MEDS: Valproate Sodium 500 MG in Sodium Chloride 0.9% 100 ML IVPB SCH ×4 (00:07→21:29)
[2021-12-12] MEDS ORDERED: Magnesium 2 GM/50 ML(in water) 2 GM in Premix Bag 1 BAG IVPB SCH (01:45)
[2021-12-12] MEDS ORDERED: Potassium Chloride 10 MEQ in Premix Bag 1 BAG IVPB SCH (01:45)
[2021-12-12 05:17] LABS: #Lymphocytes 2.4 thou/uL (1.20-3.40); #Monocytes 0.8 thou/uL (0.11-0.59); #Neutrophils 3.5 thou/uL (1.40-6.50); %Basophils 0.1 % (0.0-1.0); %Eosinophils 0.5 % (0.0-10.0); %Lymphocytes 35.1 % (21.0-51.0); %Monocytes 11.7 % (0.0-10.0); %Neutrophils 52.7 % (42.0-75.0); Hemoglobin 11.8 g/dL (12.0-16.0); Mean Corpuscular HGB CONC 32.9 g/dL (32.0-36.0); Mean Corpuscular Hemoglobin 30.3 pg (27.0-31.0); Mean Corpuscular Volume 92.1 fL (78.0-98.0); Mean Platelet Volume 8.5 fL (7.4-10.4); Platelet Count 146 thou/uL (130-400); RBC Distribution Width 13.7 % (11.5-14.5); Red Blood Cell (RBC) Count 3.88 mill/uL (4.20-5.40); White Blood Cell (WBC) Count 6.7 thou/uL (4.8-10.8)
[2021-12-12 05:53] LABS: Anion Gap 16 mmol/L (10-20); BUN (Urea Nitrogen) 7 mg/dL (9.8-20.1); Calc. Creatinine Clearance 107 mL/min (70-130); Carbon Dioxide 25 mmol/L (23-31); Chloride 101 mmol/L (98-107); Estimated GFR 100; Glucose 78 mg/dL (80-115); Magnesium 2.1 mg/dL (1.6-2.6); Potassium 3.9 mmol/L (3.5-5.1); Sodium 138 mmol/L (136-145)
[2021-12-12] MEDS ORDERED: Lacosamide 200 MG in Sodium Chloride 0.9% 50 ML IVPB SCH (09:00)
[2021-12-12] MEDS ORDERED: levETIRAcetam in NS 1,500 MG in Premix Bag 1 BAG IVPB SCH (09:00)
[2021-12-12] MEDS: levETIRAcetam 500 MG/5 ML VIAL SLOW IVP SCH ×2 (09:19→20:50)
[2021-12-12] MEDS: Enoxaparin Sodium 40 MG/0.4 ML SYRINGE SC SCH (09:19)
[2021-12-12] MEDS: Lacosamide 200 MG in Sodium Chloride 0.9% 50 ML IVPB SCH (20:50)
[2021-12-12] MEDS: Atorvastatin Calcium 20 MG TAB PO SCH (20:50)
[2021-12-13] MEDS: Valproate Sodium 500 MG in Sodium Chloride 0.9% 100 ML IVPB SCH ×2 (06:07→16:50)
[2021-12-13 06:23] LABS: #Eosinphils 0.1 thou/uL (0.0-0.7); #Lymphocytes 1.5 thou/uL (1.20-3.40); #Monocytes 0.5 thou/uL (0.11-0.59); #Neutrophils 3.2 thou/uL (1.40-6.50); %Basophils 0.6 % (0.0-1.0); %Lymphocytes 28.1 % (21.0-51.0); %Monocytes 9.4 % (0.0-10.0); %Neutrophils 59.9 % (42.0-75.0); Hemoglobin 10.9 g/dL (12.0-16.0); Mean Corpuscular HGB CONC 32.5 g/dL (32.0-36.0); Mean Platelet Volume 7.9 fL (7.4-10.4); Platelet Count 172 thou/uL (130-400); RBC Distribution Width 13.7 % (11.5-14.5); Red Blood Cell (RBC) Count 3.63 mill/uL (4.20-5.40); White Blood Cell (WBC) Count 5.3 thou/uL (4.8-10.8)
[2021-12-13 06:39] LABS: Anion Gap 12 mmol/L (10-20); BUN (Urea Nitrogen) 8 mg/dL (9.8-20.1); Calc. Creatinine Clearance 105 mL/min (70-130); Calcium 9.3 mg/dL (7.8-10.44); Carbon Dioxide 28 mmol/L (23-31); Chloride 103 mmol/L (98-107); Estimated GFR 100; Glucose 88 mg/dL (80-115); Magnesium 1.8 mg/dL (1.6-2.6); Potassium 3.6 mmol/L (3.5-5.1); Sodium 139 mmol/L (136-145)
[2021-12-13] MEDS: Enoxaparin Sodium 40 MG/0.4 ML SYRINGE SC SCH (10:24)
[2021-12-13] MEDS: Lacosamide 200 MG in Sodium Chloride 0.9% 50 ML IVPB SCH (10:24)
[2021-12-13] MEDS: levETIRAcetam 500 MG/5 ML VIAL SLOW IVP SCH (10:24)
[2021-12-13] MEDS: Amlodipine 10 MG TAB PO SCH (10:24)
[2021-12-13] MEDS: Magnesium Oxide 400 MG TAB PO SCH (10:25)
[2021-12-13] MEDS: Folic Acid 1 MG TAB PO SCH (10:25)
[2021-12-13] MEDS: Aspirin 81 mg Enteric Coated Tablet PO SCH (10:25)
[2021-12-13] MEDS: Losartan 25 MG TAB PO SCH (10:25)
[2021-12-13] MEDS: Cyanocobalamin (Vitamin B-12) 1,000 MCG TAB PO SCH (10:26)
[2021-12-13] MEDS: Atorvastatin Calcium 20 MG TAB PO SCH (20:36)
[2021-12-13] MEDS: levETIRAcetam 500 MG TAB PO SCH (20:36)
[2021-12-13] MEDS: Lacosamide 50 mg Tablet PO SCH (20:37)
[2021-12-13] MEDS: Divalproex Sodium 250 MG (DR) TAB PO SCH (20:44)
[2021-12-14 07:34] LABS: #Eosinphils 0.1 thou/uL (0.0-0.7); #Lymphocytes 1.5 thou/uL (1.20-3.40); #Monocytes 0.8 thou/uL (0.11-0.59); #Neutrophils 4.5 thou/uL (1.40-6.50); %Basophils 0.5 % (0.0-1.0); %Eosinophils 1.3 % (0.0-10.0); %Lymphocytes 21.5 % (21.0-51.0); %Monocytes 11.9 % (0.0-10.0); %Neutrophils 64.8 % (42.0-75.0); Hemoglobin 11.3 g/dL (12.0-16.0); Mean Corpuscular HGB CONC 32.9 g/dL (32.0-36.0); Mean Corpuscular Hemoglobin 30.3 pg (27.0-31.0); Mean Corpuscular Volume 92.1 fL (78.0-98.0); Mean Platelet Volume 7.8 fL (7.4-10.4); Platelet Count 174 thou/uL (130-400); RBC Distribution Width 13.6 % (11.5-14.5); Red Blood Cell (RBC) Count 3.71 mill/uL (4.20-5.40)
[2021-12-14 07:36] LABS: Anion Gap 14 mmol/L (10-20); BUN (Urea Nitrogen) 7 mg/dL (9.8-20.1); Calc. Creatinine Clearance 101 mL/min (70-130); Calcium 9.7 mg/dL (7.8-10.44); Carbon Dioxide 28 mmol/L (23-31); Chloride 101 mmol/L (98-107); Estimated GFR 100; Glucose 99 mg/dL (80-115); Magnesium 1.6 mg/dL (1.6-2.6); Potassium 3.5 mmol/L (3.5-5.1); Sodium 139 mmol/L (136-145)
[2021-12-14] MEDS: Folic Acid 1 MG TAB PO SCH (08:04)
[2021-12-14] MEDS: Divalproex Sodium 250 MG (DR) TAB PO SCH ×2 (08:04→21:31)
[2021-12-14] MEDS: Aspirin 81 mg Enteric Coated Tablet PO SCH (08:05)
[2021-12-14] MEDS: Losartan 25 MG TAB PO SCH (08:05)
[2021-12-14] MEDS: Lacosamide 50 mg Tablet PO SCH ×2 (08:05→21:31)
[2021-12-14] MEDS: Amlodipine 10 MG TAB PO SCH (08:05)
[2021-12-14] MEDS: Magnesium Oxide 400 MG TAB PO SCH ×2 (08:05→21:31)
[2021-12-14] MEDS: levETIRAcetam 500 MG TAB PO SCH ×2 (08:05→21:31)
[2021-12-14] MEDS: Enoxaparin Sodium 40 MG/0.4 ML SYRINGE SC SCH (08:05)
[2021-12-14] MEDS: Cyanocobalamin (Vitamin B-12) 1,000 MCG TAB PO SCH (08:05)
[2021-12-14] MEDS ORDERED: Magnesium Oxide 400 MG TAB PO SCH ×2 (10:15→21:00)
[2021-12-14] MEDS: Atorvastatin Calcium 20 MG TAB PO SCH (21:31)
[2021-12-15 03:55] LABS: Anion Gap 12 mmol/L (10-20); BUN (Urea Nitrogen) 12 mg/dL (9.8-20.1); Calc. Creatinine Clearance 98 mL/min (70-130); Calcium 9.3 mg/dL (7.8-10.44); Carbon Dioxide 29 mmol/L (23-31); Chloride 101 mmol/L (98-107); Estimated GFR 99; Glucose 103 mg/dL (80-115); Magnesium 1.7 mg/dL (1.6-2.6); Potassium 3.6 mmol/L (3.5-5.1); Sodium 138 mmol/L (136-145)
[2021-12-15] MEDS: Cyanocobalamin (Vitamin B-12) 1,000 MCG TAB PO SCH (08:50)
[2021-12-15] MEDS: Losartan 25 MG TAB PO SCH (08:50)
[2021-12-15] MEDS: Divalproex Sodium 250 MG (DR) TAB PO SCH ×2 (08:51→20:43)
[2021-12-15] MEDS: Folic Acid 1 MG TAB PO SCH (08:51)
[2021-12-15] MEDS: Aspirin 81 mg Enteric Coated Tablet PO SCH (08:51)
[2021-12-15] MEDS: levETIRAcetam 500 MG TAB PO SCH ×2 (08:51→20:43)
[2021-12-15] MEDS: Magnesium Oxide 400 MG TAB PO SCH (08:51)
[2021-12-15] MEDS: Amlodipine 10 MG TAB PO SCH (08:51)
[2021-12-15] MEDS: Enoxaparin Sodium 40 MG/0.4 ML SYRINGE SC SCH (08:52)
[2021-12-15] MEDS: Lacosamide 50 mg Tablet PO SCH ×2 (08:56→20:41)
[2021-12-15] MEDS: Atorvastatin Calcium 20 MG TAB PO SCH (20:43)
[2021-12-16] MEDS: levETIRAcetam 500 MG TAB PO SCH ×2 (09:08→21:42)
[2021-12-16] MEDS: Aspirin 81 mg Enteric Coated Tablet PO SCH (09:08)
[2021-12-16] MEDS: Cyanocobalamin (Vitamin B-12) 1,000 MCG TAB PO SCH (09:08)
[2021-12-16] MEDS: Losartan 25 MG TAB PO SCH (09:08)
[2021-12-16] MEDS: Lacosamide 50 mg Tablet PO SCH ×2 (09:09→21:43)
[2021-12-16] MEDS: Divalproex Sodium 250 MG (DR) TAB PO SCH ×2 (09:09→21:42)
[2021-12-16] MEDS: Amlodipine 10 MG TAB PO SCH (09:10)
[2021-12-16] MEDS: Enoxaparin Sodium 40 MG/0.4 ML SYRINGE SC SCH (09:10)
[2021-12-16] MEDS: Atorvastatin Calcium 20 MG TAB PO SCH (21:43)
[2021-12-17 05:02] LABS: #Lymphocytes 1.3 thou/uL (1.20-3.40); #Monocytes 1.1 thou/uL (0.11-0.59); #Neutrophils 7.8 thou/uL (1.40-6.50); %Basophils 0.1 % (0.0-1.0); %Eosinophils 0.1 % (0.0-10.0); %Lymphocytes 12.5 % (21.0-51.0); %Monocytes 10.4 % (0.0-10.0); Hemoglobin 10.6 g/dL (12.0-16.0); Mean Corpuscular HGB CONC 34.2 g/dL (32.0-36.0); Mean Corpuscular Hemoglobin 31.1 pg (27.0-31.0); Mean Corpuscular Volume 90.8 fL (78.0-98.0); Mean Platelet Volume 7.5 fL (7.4-10.4); Platelet Count 180 thou/uL (130-400); RBC Distribution Width 13.4 % (11.5-14.5); Red Blood Cell (RBC) Count 3.43 mill/uL (4.20-5.40); White Blood Cell (WBC) Count 10.1 thou/uL (4.8-10.8)
[2021-12-17 05:18] LABS: Anion Gap 15 mmol/L (10-20); BUN (Urea Nitrogen) 12 mg/dL (9.8-20.1); Calc. Creatinine Clearance 92 mL/min (70-130); Calcium 9.5 mg/dL (7.8-10.44); Carbon Dioxide 27 mmol/L (23-31); Chloride 98 mmol/L (98-107); Estimated GFR 98; Glucose 173 mg/dL (80-115); Magnesium 1.7 mg/dL (1.6-2.6); Potassium 3.8 mmol/L (3.5-5.1); Sodium 136 mmol/L (136-145)
[2021-12-17] MEDS: Folic Acid 1 MG TAB PO SCH (09:16)
[2021-12-17] MEDS: Aspirin 81 mg Enteric Coated Tablet PO SCH (09:16)
[2021-12-17] MEDS: levETIRAcetam 500 MG TAB PO SCH ×2 (09:17→20:02)
[2021-12-17] MEDS: Lacosamide 50 mg Tablet PO SCH ×2 (09:17→20:03)
[2021-12-17] MEDS: Losartan 25 MG TAB PO SCH (09:18)
[2021-12-17] MEDS: Cyanocobalamin (Vitamin B-12) 1,000 MCG TAB PO SCH (09:18)
[2021-12-17] MEDS: Amlodipine 10 MG TAB PO SCH (09:18)
[2021-12-17] MEDS: Enoxaparin Sodium 40 MG/0.4 ML SYRINGE SC SCH (09:18)
[2021-12-17] MEDS: Divalproex Sodium 250 MG (DR) TAB PO SCH ×2 (09:48→20:16)
[2021-12-17] MEDS: Atorvastatin Calcium 20 MG TAB PO SCH (20:03)
[2021-12-18 05:28] LABS: #Eosinphils 0.1 thou/uL (0.0-0.7); #Lymphocytes 2.4 thou/uL (1.20-3.40); #Monocytes 0.7 thou/uL (0.11-0.59); #Neutrophils 3.5 thou/uL (1.40-6.50); %Basophils 0.7 % (0.0-1.0); %Eosinophils 1.7 % (0.0-10.0); %Lymphocytes 35.3 % (21.0-51.0); %Monocytes 10.4 % (0.0-10.0); %Neutrophils 51.9 % (42.0-75.0); Hemoglobin 10.6 g/dL (12.0-16.0); Mean Corpuscular HGB CONC 33.4 g/dL (32.0-36.0); Mean Corpuscular Hemoglobin 30.7 pg (27.0-31.0); Mean Corpuscular Volume 91.8 fL (78.0-98.0); Mean Platelet Volume 7.6 fL (7.4-10.4); Platelet Count 221 thou/uL (130-400); RBC Distribution Width 13.4 % (11.5-14.5); Red Blood Cell (RBC) Count 3.45 mill/uL (4.20-5.40); White Blood Cell (WBC) Count 6.7 thou/uL (4.8-10.8)
[2021-12-18 06:02] LABS: Anion Gap 15 mmol/L (10-20); BUN (Urea Nitrogen) 10 mg/dL (9.8-20.1); Calc. Creatinine Clearance 103 mL/min (70-130); Calcium 9.7 mg/dL (7.8-10.44); Carbon Dioxide 27 mmol/L (23-31); Chloride 98 mmol/L (98-107); Estimated GFR 100; Glucose 117 mg/dL (80-115); Potassium 3.6 mmol/L (3.5-5.1); Sodium 136 mmol/L (136-145)
[2021-12-18] MEDS: Losartan 25 MG TAB PO SCH (09:43)
[2021-12-18] MEDS: levETIRAcetam 500 MG TAB PO SCH ×2 (09:43→21:07)
[2021-12-18] MEDS: Folic Acid 1 MG TAB PO SCH (09:43)
[2021-12-18] MEDS: Aspirin 81 mg Enteric Coated Tablet PO SCH (09:44)
[2021-12-18] MEDS: Cyanocobalamin (Vitamin B-12) 1,000 MCG TAB PO SCH (09:44)
[2021-12-18] MEDS: Enoxaparin Sodium 40 MG/0.4 ML SYRINGE SC SCH (09:44)
[2021-12-18] MEDS: Amlodipine 10 MG TAB PO SCH (09:44)
[2021-12-18] MEDS: Divalproex Sodium 250 MG (DR) TAB PO SCH ×2 (09:50→22:21)
[2021-12-18] MEDS: Lacosamide 50 mg Tablet PO SCH ×2 (10:06→21:06)
[2021-12-18] MEDS: Atorvastatin Calcium 20 MG TAB PO SCH (21:06)
[2021-12-19 05:25] LABS: #Eosinphils 0.2 thou/uL (0.0-0.7); #Lymphocytes 2.6 thou/uL (1.20-3.40); #Monocytes 0.7 thou/uL (0.11-0.59); #Neutrophils 3.1 thou/uL (1.40-6.50); %Basophils 0.4 % (0.0-1.0); %Eosinophils 2.4 % (0.0-10.0); %Lymphocytes 39.2 % (21.0-51.0); %Monocytes 11.2 % (0.0-10.0); %Neutrophils 46.9 % (42.0-75.0); Hemoglobin 10.8 g/dL (12.0-16.0); Mean Corpuscular HGB CONC 33.2 g/dL (32.0-36.0); Mean Corpuscular Hemoglobin 30.7 pg (27.0-31.0); Mean Corpuscular Volume 92.4 fL (78.0-98.0); Mean Platelet Volume 7.6 fL (7.4-10.4); Platelet Count 249 thou/uL (130-400); RBC Distribution Width 13.3 % (11.5-14.5); Red Blood Cell (RBC) Count 3.53 mill/uL (4.20-5.40); White Blood Cell (WBC) Count 6.6 thou/uL (4.8-10.8)
[2021-12-19 05:50] LABS: Anion Gap 14 mmol/L (10-20); BUN (Urea Nitrogen) 15 mg/dL (9.8-20.1); Calc. Creatinine Clearance 105 mL/min (70-130); Calcium 9.6 mg/dL (7.8-10.44); Carbon Dioxide 28 mmol/L (23-31); Chloride 99 mmol/L (98-107); Estimated GFR 101; Glucose 124 mg/dL (80-115); Potassium 3.4 mmol/L (3.5-5.1); Sodium 138 mmol/L (136-145)
[2021-12-19] MEDS ORDERED: Potassium Chloride 20 MEQ TAB PO SCH (08:30)
[2021-12-19] MEDS: Aspirin 81 mg Enteric Coated Tablet PO SCH (09:16)
[2021-12-19] MEDS: Divalproex Sodium 250 MG (DR) TAB PO SCH ×2 (09:16→20:29)
[2021-12-19] MEDS: levETIRAcetam 500 MG TAB PO SCH ×2 (09:16→20:29)
[2021-12-19] MEDS: Cyanocobalamin (Vitamin B-12) 1,000 MCG TAB PO SCH (09:16)
[2021-12-19] MEDS: Amlodipine 10 MG TAB PO SCH (09:16)
[2021-12-19] MEDS: Losartan 25 MG TAB PO SCH (09:17)
[2021-12-19] MEDS: Lacosamide 50 mg Tablet PO SCH ×2 (09:17→20:29)
[2021-12-19] MEDS: Folic Acid 1 MG TAB PO SCH (09:17)
[2021-12-19] MEDS: Enoxaparin Sodium 40 MG/0.4 ML SYRINGE SC SCH (09:17)
[2021-12-19] MEDS: Atorvastatin Calcium 20 MG TAB PO SCH (20:29)
[2021-12-20 05:07] LABS: #Eosinphils 0.2 thou/uL (0.0-0.7); #Lymphocytes 2.4 thou/uL (1.20-3.40); #Monocytes 0.4 thou/uL (0.11-0.59); #Neutrophils 1.9 thou/uL (1.40-6.50); %Eosinophils 3.9 % (0.0-10.0); %Lymphocytes 47.5 % (21.0-51.0); %Monocytes 8.8 % (0.0-10.0); %Neutrophils 38.8 % (42.0-75.0); Hemoglobin 10.7 g/dL (12.0-16.0); Mean Corpuscular HGB CONC 32.1 g/dL (32.0-36.0); Mean Corpuscular Hemoglobin 30.4 pg (27.0-31.0); Mean Corpuscular Volume 94.6 fL (78.0-98.0); Mean Platelet Volume 7.7 fL (7.4-10.4); Platelet Count 284 thou/uL (130-400); RBC Distribution Width 13.1 % (11.5-14.5); Red Blood Cell (RBC) Count 3.52 mill/uL (4.20-5.40)
[2021-12-20 05:29] LABS: Anion Gap 13 mmol/L (10-20); BUN (Urea Nitrogen) 12 mg/dL (9.8-20.1); Calc. Creatinine Clearance 103 mL/min (70-130); Calcium 9.7 mg/dL (7.8-10.44); Carbon Dioxide 28 mmol/L (23-31); Chloride 102 mmol/L (98-107); Estimated GFR 100; Glucose 117 mg/dL (80-115); Sodium 139 mmol/L (136-145)
[2021-12-20 10:10] VITALS: BMI 24.7
[2021-12-20] MEDS: levETIRAcetam 500 MG TAB PO SCH ×2 (10:59→21:43)
[2021-12-20] MEDS: Aspirin 81 mg Enteric Coated Tablet PO SCH (11:00)
[2021-12-20] MEDS: Lacosamide 50 mg Tablet PO SCH ×2 (11:00→21:45)
[2021-12-20] MEDS: Losartan 25 MG TAB PO SCH (11:00)
[2021-12-20] MEDS: Folic Acid 1 MG TAB PO SCH (11:00)
[2021-12-20] MEDS: Cyanocobalamin (Vitamin B-12) 1,000 MCG TAB PO SCH (11:01)
[2021-12-20] MEDS: Amlodipine 10 MG TAB PO SCH (11:01)
[2021-12-20] MEDS: Enoxaparin Sodium 40 MG/0.4 ML SYRINGE SC SCH (11:02)
[2021-12-20] MEDS: Divalproex Sodium 250 MG (DR) TAB PO SCH ×2 (11:02→21:45)
[2021-12-20] MEDS: Atorvastatin Calcium 20 MG TAB PO SCH (21:43)
[2021-12-21 06:12] LABS: Anion Gap 15 mmol/L (10-20); BUN (Urea Nitrogen) 12 mg/dL (9.8-20.1); Calc. Creatinine Clearance 100 mL/min (70-130); Calcium 9.6 mg/dL (7.8-10.44); Carbon Dioxide 27 mmol/L (23-31); Chloride 101 mmol/L (98-107); Estimated GFR 100; Glucose 97 mg/dL (80-115); Potassium 3.8 mmol/L (3.5-5.1); Sodium 139 mmol/L (136-145)
[2021-12-21 07:07] LABS: Band 2 % (5-11); Eosinophils 3 % (0-10); Hemoglobin 11.5 g/dL (12.0-16.0); Lymphocytes 52 % (21-51); MDiff Complete? YES; Mean Corpuscular HGB CONC 33.6 g/dL (32.0-36.0); Mean Corpuscular Hemoglobin 31.4 pg (27.0-31.0); Mean Corpuscular Volume 93.5 fL (78.0-98.0); Mean Platelet Volume 6.9 fL (7.4-10.4); Monocytes 4 % (0-10); Neutrophil 39 % (42-75); Platelet Count 292 thou/uL (130-400); RBC Distribution Width 13.1 % (11.5-14.5); Red Blood Cell (RBC) Count 3.66 mill/uL (4.20-5.40); White Blood Cell (WBC) Count 4.8 thou/uL (4.8-10.8)
[2021-12-21] MEDS: levETIRAcetam 500 MG TAB PO SCH ×2 (08:44→22:10)
[2021-12-21] MEDS: Folic Acid 1 MG TAB PO SCH (08:44)
[2021-12-21] MEDS: Enoxaparin Sodium 40 MG/0.4 ML SYRINGE SC SCH (08:44)
[2021-12-21] MEDS: Lacosamide 50 mg Tablet PO SCH ×2 (08:45→22:11)
[2021-12-21] MEDS: Losartan 25 MG TAB PO SCH (08:45)
[2021-12-21] MEDS: Amlodipine 10 MG TAB PO SCH (08:45)
[2021-12-21] MEDS: Aspirin 81 mg Enteric Coated Tablet PO SCH (08:46)
[2021-12-21] MEDS: Cyanocobalamin (Vitamin B-12) 1,000 MCG TAB PO SCH (08:46)
[2021-12-21] MEDS: Divalproex Sodium 250 MG (DR) TAB PO SCH ×2 (08:47→22:10)
[2021-12-21] MEDS: Atorvastatin Calcium 20 MG TAB PO SCH (22:11)
[2021-12-22 04:50] LABS: Hemoglobin 10.7 g/dL (12.0-16.0); Red Blood Cell (RBC) Count 3.56 mill/uL (4.20-5.40); White Blood Cell (WBC) Count 5.3 thou/uL (4.8-10.8)
[2021-12-22 04:51] LABS: #Eosinphils 0.1 thou/uL (0.0-0.7); #Lymphocytes 2.4 thou/uL (1.20-3.40); #Monocytes 0.4 thou/uL (0.11-0.59); #Neutrophils 2.4 thou/uL (1.40-6.50); %Basophils 0.9 % (0.0-1.0); %Eosinophils 2.8 % (0.0-10.0); %Lymphocytes 45.5 % (21.0-51.0); %Monocytes 6.9 % (0.0-10.0); Mean Corpuscular HGB CONC 32.5 g/dL (32.0-36.0); Mean Corpuscular Hemoglobin 30.2 pg (27.0-31.0); Mean Corpuscular Volume 92.9 fL (78.0-98.0); Mean Platelet Volume 6.8 fL (7.4-10.4); Platelet Count 324 thou/uL (130-400); RBC Distribution Width 13.4 % (11.5-14.5)
[2021-12-22 05:14] LABS: Anion Gap 15 mmol/L (10-20); BUN (Urea Nitrogen) 14 mg/dL (9.8-20.1); Calc. Creatinine Clearance 98 mL/min (70-130); Calcium 9.7 mg/dL (7.8-10.44); Carbon Dioxide 28 mmol/L (23-31); Chloride 100 mmol/L (98-107); Estimated GFR 99; Glucose 102 mg/dL (80-115); Potassium 3.8 mmol/L (3.5-5.1); Sodium 139 mmol/L (136-145)
[2021-12-22] MEDS: Divalproex Sodium 250 MG (DR) TAB PO SCH ×2 (08:36→22:04)
[2021-12-22] MEDS: Losartan 25 MG TAB PO SCH (08:38)
[2021-12-22] MEDS: Amlodipine 10 MG TAB PO SCH (08:40)
[2021-12-22] MEDS: Aspirin 81 mg Enteric Coated Tablet PO SCH (08:40)
[2021-12-22] MEDS: Lacosamide 50 mg Tablet PO SCH ×2 (08:41→22:04)
[2021-12-22] MEDS: levETIRAcetam 500 MG TAB PO SCH ×2 (08:42→22:04)
[2021-12-22] MEDS: Folic Acid 1 MG TAB PO SCH (08:43)
[2021-12-22] MEDS: Cyanocobalamin (Vitamin B-12) 1,000 MCG TAB PO SCH (08:44)
[2021-12-22] MEDS: Enoxaparin Sodium 40 MG/0.4 ML SYRINGE SC SCH (08:46)
[2021-12-22] MEDS: Atorvastatin Calcium 20 MG TAB PO SCH (22:04)
[2021-12-23 05:23] LABS: Anion Gap 15 mmol/L (10-20); BUN (Urea Nitrogen) 11 mg/dL (9.8-20.1); Calc. Creatinine Clearance 98 mL/min (70-130); Calcium 9.4 mg/dL (7.8-10.44); Carbon Dioxide 29 mmol/L (23-31); Chloride 100 mmol/L (98-107); Estimated GFR 99; Glucose 96 mg/dL (80-115); Potassium 3.7 mmol/L (3.5-5.1); Sodium 140 mmol/L (136-145)
[2021-12-23 05:28] LABS: Band 2 % (5-11); Eosinophils 2 % (0-10); Hemoglobin 10.2 g/dL (12.0-16.0); Hypochromia SLIGHT = 6-15 cells (100X) (0-5/hpf); Lymphocytes 33 % (21-51); MDiff Complete? YES; Mean Corpuscular HGB CONC 32.8 g/dL (32.0-36.0); Mean Corpuscular Hemoglobin 30.1 pg (27.0-31.0); Mean Corpuscular Volume 91.8 fL (78.0-98.0); Mean Platelet Volume 6.2 fL (7.4-10.4); Monocytes 11 % (0-10); Neutrophil 52 % (42-75); Platelet Count 296 thou/uL (130-400); Platelet Morphology Comment Appears Adequate; RBC Distribution Width 13.4 % (11.5-14.5)
[2021-12-23] MEDS: levETIRAcetam 500 MG TAB PO SCH ×2 (09:03→20:29)
[2021-12-23] MEDS: Divalproex Sodium 250 MG (DR) TAB PO SCH ×2 (09:04→20:29)
[2021-12-23] MEDS: Lacosamide 50 mg Tablet PO SCH ×2 (09:05→20:29)
[2021-12-23] MEDS: Amlodipine 10 MG TAB PO SCH (09:06)
[2021-12-23] MEDS: Losartan 25 MG TAB PO SCH (09:07)
[2021-12-23] MEDS: Aspirin 81 mg Enteric Coated Tablet PO SCH (09:08)
[2021-12-23] MEDS: Folic Acid 1 MG TAB PO SCH (09:08)
[2021-12-23] MEDS: Cyanocobalamin (Vitamin B-12) 1,000 MCG TAB PO SCH (09:09)
[2021-12-23] MEDS: Enoxaparin Sodium 40 MG/0.4 ML SYRINGE SC SCH (09:10)
[2021-12-23] MEDS: Atorvastatin Calcium 20 MG TAB PO SCH (20:29)
[2021-12-24 05:37] LABS: #Eosinphils 0.1 thou/uL (0.0-0.7); #Lymphocytes 2.5 thou/uL (1.20-3.40); #Monocytes 0.4 thou/uL (0.11-0.59); #Neutrophils 3.2 thou/uL (1.40-6.50); %Basophils 0.3 % (0.0-1.0); %Eosinophils 2.3 % (0.0-10.0); %Lymphocytes 40.3 % (21.0-51.0); %Monocytes 6.3 % (0.0-10.0); %Neutrophils 50.7 % (42.0-75.0); Hemoglobin 10.1 g/dL (12.0-16.0); Mean Corpuscular HGB CONC 33.9 g/dL (32.0-36.0); Mean Corpuscular Hemoglobin 31.1 pg (27.0-31.0); Mean Platelet Volume 6.5 fL (7.4-10.4); Platelet Count 314 thou/uL (130-400); RBC Distribution Width 13.5 % (11.5-14.5); Red Blood Cell (RBC) Count 3.24 mill/uL (4.20-5.40); White Blood Cell (WBC) Count 6.3 thou/uL (4.8-10.8)
[2021-12-24 06:00] LABS: Anion Gap 13 mmol/L (10-20); BUN (Urea Nitrogen) 13 mg/dL (9.8-20.1); Calc. Creatinine Clearance 98 mL/min (70-130); Calcium 9.5 mg/dL (7.8-10.44); Carbon Dioxide 30 mmol/L (23-31); Chloride 99 mmol/L (98-107); Estimated GFR 99; Glucose 97 mg/dL (80-115); Potassium 3.6 mmol/L (3.5-5.1); Sodium 138 mmol/L (136-145)
[2021-12-24] MEDS: Folic Acid 1 MG TAB PO SCH (08:50)
[2021-12-24] MEDS: Enoxaparin Sodium 40 MG/0.4 ML SYRINGE SC SCH (08:50)
[2021-12-24] MEDS: levETIRAcetam 500 MG TAB PO SCH ×2 (08:51→21:02)
[2021-12-24] MEDS: Lacosamide 50 mg Tablet PO SCH ×2 (08:52→21:02)
[2021-12-24] MEDS: Amlodipine 10 MG TAB PO SCH (08:54)
[2021-12-24] MEDS: Aspirin 81 mg Enteric Coated Tablet PO SCH (08:54)
[2021-12-24] MEDS: Cyanocobalamin (Vitamin B-12) 1,000 MCG TAB PO SCH (08:54)
[2021-12-24] MEDS: Losartan 25 MG TAB PO SCH (08:55)
[2021-12-24] MEDS: Divalproex Sodium 250 MG (DR) TAB PO SCH ×2 (08:58→21:03)
[2021-12-24] MEDS: Atorvastatin Calcium 20 MG TAB PO SCH (21:02)
[2021-12-25 05:43] LABS: Anion Gap 14 mmol/L (10-20); BUN (Urea Nitrogen) 13 mg/dL (9.8-20.1); Calc. Creatinine Clearance 101 mL/min (70-130); Calcium 9.5 mg/dL (7.8-10.44); Carbon Dioxide 29 mmol/L (23-31); Chloride 100 mmol/L (98-107); Estimated GFR 100; Glucose 85 mg/dL (80-115); Potassium 3.7 mmol/L (3.5-5.1); Sodium 139 mmol/L (136-145)
[2021-12-25 06:01] LABS: Eosinophils 2 % (0-10); Hemoglobin 11.1 g/dL (12.0-16.0); Hypochromia SLIGHT = 6-15 cells (100X) (0-5/hpf); Lymphocytes 45 % (21-51); MDiff Complete? YES; Mean Corpuscular HGB CONC 32.8 g/dL (32.0-36.0); Mean Corpuscular Hemoglobin 30.4 pg (27.0-31.0); Mean Corpuscular Volume 92.8 fL (78.0-98.0); Mean Platelet Volume 6.5 fL (7.4-10.4); Monocytes 7 % (0-10); Neutrophil 46 % (42-75); Platelet Count 311 thou/uL (130-400); Platelet Morphology Comment Appears Adequate; RBC Distribution Width 13.7 % (11.5-14.5); Red Blood Cell (RBC) Count 3.66 mill/uL (4.20-5.40); White Blood Cell (WBC) Count 5.2 thou/uL (4.8-10.8)
[2021-12-25] MEDS: Lacosamide 50 mg Tablet PO SCH ×2 (09:11→20:36)
[2021-12-25] MEDS: levETIRAcetam 500 MG TAB PO SCH ×2 (09:11→20:37)
[2021-12-25] MEDS: Aspirin 81 mg Enteric Coated Tablet PO SCH (09:13)
[2021-12-25] MEDS: Amlodipine 10 MG TAB PO SCH (09:13)
[2021-12-25] MEDS: Folic Acid 1 MG TAB PO SCH (09:13)
[2021-12-25] MEDS: Losartan 25 MG TAB PO SCH (09:13)
[2021-12-25] MEDS: Cyanocobalamin (Vitamin B-12) 1,000 MCG TAB PO SCH (09:14)
[2021-12-25] MEDS: Enoxaparin Sodium 40 MG/0.4 ML SYRINGE SC SCH (09:14)
[2021-12-25] MEDS: Divalproex Sodium 250 MG (DR) TAB PO SCH ×2 (09:14→20:36)
[2021-12-25] MEDS: Atorvastatin Calcium 20 MG TAB PO SCH (20:37)
[2021-12-26 05:09] LABS: #Eosinphils 0.2 thou/uL (0.0-0.7); #Lymphocytes 2.7 thou/uL (1.20-3.40); #Monocytes 0.4 thou/uL (0.11-0.59); #Neutrophils 2.3 thou/uL (1.40-6.50); %Basophils 0.1 % (0.0-1.0); %Monocytes 7.4 % (0.0-10.0); %Neutrophils 40.6 % (42.0-75.0); Hemoglobin 10.9 g/dL (12.0-16.0); Mean Corpuscular HGB CONC 33.2 g/dL (32.0-36.0); Mean Corpuscular Volume 93.2 fL (78.0-98.0); Mean Platelet Volume 6.8 fL (7.4-10.4); Platelet Count 304 thou/uL (130-400); RBC Distribution Width 13.7 % (11.5-14.5); Red Blood Cell (RBC) Count 3.53 mill/uL (4.20-5.40); White Blood Cell (WBC) Count 5.6 thou/uL (4.8-10.8)
[2021-12-26 05:28] LABS: Anion Gap 14 mmol/L (10-20); BUN (Urea Nitrogen) 11 mg/dL (9.8-20.1); Calc. Creatinine Clearance 103 mL/min (70-130); Calcium 9.3 mg/dL (7.8-10.44); Carbon Dioxide 27 mmol/L (23-31); Chloride 101 mmol/L (98-107); Estimated GFR 100; Glucose 82 mg/dL (80-115); Sodium 138 mmol/L (136-145)
[2021-12-26] MEDS: Divalproex Sodium 250 MG (DR) TAB PO SCH ×2 (09:05→21:51)
[2021-12-26] MEDS: levETIRAcetam 500 MG TAB PO SCH ×2 (09:05→21:51)
[2021-12-26] MEDS: Cyanocobalamin (Vitamin B-12) 1,000 MCG TAB PO SCH (09:06)
[2021-12-26] MEDS: Losartan 25 MG TAB PO SCH (09:06)
[2021-12-26] MEDS: Aspirin 81 mg Enteric Coated Tablet PO SCH (09:07)
[2021-12-26] MEDS: Lacosamide 50 mg Tablet PO SCH ×2 (09:07→21:51)
[2021-12-26] MEDS: Amlodipine 10 MG TAB PO SCH (09:07)
[2021-12-26] MEDS: Enoxaparin Sodium 40 MG/0.4 ML SYRINGE SC SCH (09:08)
[2021-12-26] MEDS: Folic Acid 1 MG TAB PO SCH (09:20)
[2021-12-26] MEDS: Atorvastatin Calcium 20 MG TAB PO SCH (21:51)
[2021-12-27 05:05] LABS: #Basophils 0.1 thou/uL (0.0-0.2); #Eosinphils 0.2 thou/uL (0.0-0.7); #Lymphocytes 3.1 thou/uL (1.20-3.40); #Monocytes 0.5 thou/uL (0.11-0.59); %Basophils 0.8 % (0.0-1.0); %Eosinophils 2.6 % (0.0-10.0); %Lymphocytes 45.1 % (21.0-51.0); %Monocytes 7.5 % (0.0-10.0); Hemoglobin 11.3 g/dL (12.0-16.0); Mean Corpuscular HGB CONC 32.8 g/dL (32.0-36.0); Mean Corpuscular Hemoglobin 30.5 pg (27.0-31.0); Mean Corpuscular Volume 92.8 fL (78.0-98.0); Mean Platelet Volume 6.7 fL (7.4-10.4); Platelet Count 310 thou/uL (130-400); RBC Distribution Width 13.7 % (11.5-14.5); White Blood Cell (WBC) Count 6.8 thou/uL (4.8-10.8)
[2021-12-27 05:25] LABS: Anion Gap 13 mmol/L (10-20); BUN (Urea Nitrogen) 10 mg/dL (9.8-20.1); Calc. Creatinine Clearance 100 mL/min (70-130); Calcium 9.5 mg/dL (7.8-10.44); Carbon Dioxide 29 mmol/L (23-31); Chloride 102 mmol/L (98-107); Estimated GFR 100; Glucose 91 mg/dL (80-115); Potassium 3.9 mmol/L (3.5-5.1); Sodium 140 mmol/L (136-145)
[2021-12-27] MEDS: Losartan 25 MG TAB PO SCH (09:41)
[2021-12-27] MEDS: levETIRAcetam 500 MG TAB PO SCH ×2 (09:41→20:21)
[2021-12-27] MEDS: Amlodipine 10 MG TAB PO SCH (09:44)
[2021-12-27] MEDS: Cyanocobalamin (Vitamin B-12) 1,000 MCG TAB PO SCH (09:44)
[2021-12-27] MEDS: Lacosamide 50 mg Tablet PO SCH ×2 (09:44→20:20)
[2021-12-27] MEDS: Aspirin 81 mg Enteric Coated Tablet PO SCH (09:45)
[2021-12-27] MEDS: Folic Acid 1 MG TAB PO SCH (09:45)
[2021-12-27] MEDS: Divalproex Sodium 250 MG (DR) TAB PO SCH ×2 (09:46→20:21)
[2021-12-27] MEDS: Enoxaparin Sodium 40 MG/0.4 ML SYRINGE SC SCH (09:46)
[2021-12-27] MEDS: Atorvastatin Calcium 20 MG TAB PO SCH (20:21)
[2021-12-28 04:56] VITALS: BP 124/58; TEMP 97.4
[2021-12-28] MEDS: Lacosamide 50 mg Tablet PO SCH (08:45)
[2021-12-28] MEDS: levETIRAcetam 500 MG TAB PO SCH (08:45)
[2021-12-28] MEDS: Amlodipine 10 MG TAB PO SCH (08:46)
[2021-12-28] MEDS: Cyanocobalamin (Vitamin B-12) 1,000 MCG TAB PO SCH (08:46)
[2021-12-28] MEDS: Aspirin 81 mg Enteric Coated Tablet PO SCH (08:46)
[2021-12-28] MEDS: Losartan 25 MG TAB PO SCH (08:46)
[2021-12-28] MEDS: Divalproex Sodium 250 MG (DR) TAB PO SCH (08:47)
[2021-12-28] MEDS: Folic Acid 1 MG TAB PO SCH (08:47)
[2021-12-28] MEDS: Enoxaparin Sodium 40 MG/0.4 ML SYRINGE SC SCH (08:48)
== END 2021-12-28 08:50 | DRG 100 ==
LOC: ERS 16:22 → IMCU/EMU 20:43 → NEURO 12-16 11:06
PROVIDERS: ADMIT Student in an Organized Health Care Education/Training Program; ATTEND Student in an Organized Health Care Education/Training Program
PROC: 8E0ZXY6 Isolation (ICD-10-PCS; principal; 2021-12-11)
DX: G40.919 Epilepsy, unspecified, intractable, without status epilepticus (principal); G93.41 Metabolic encephalopathy; U07.1 COVID-19; I50.32 Chronic diastolic (congestive) heart failure; I69.951 Hemiplegia and hemiparesis following unspecified cerebrovascular disease affecting right dominant side; I11.0 Hypertensive heart disease with heart failure; E78.5 Hyperlipidemia, unspecified; K21.9 Gastro-esophageal reflux disease without esophagitis; F41.9 Anxiety disorder, unspecified; F32.A Depression, unspecified; E83.42 Hypomagnesemia; E87.6 Hypokalemia; D64.9 Anemia, unspecified; F10.10 Alcohol abuse, uncomplicated; G93.89 Other specified disorders of brain; Z79.82 Long term (current) use of aspirin; Z79.899 Other long term (current) drug therapy; Z98.890 Other specified postprocedural states
CPT/HCPCS: 36415; 36416; 51702; 70450; 70496; 70498; 80048; 80053; 80164; 80306; 80307; 81003; 82550; 83605; 83735; 85025; 85610; 85730; 93005; 94760; 95712; 95819; 95957; 96365; 96375; C9254; J1650; J1953; J2060; J2250; J3475; J3480; J3490; Q2009; Q9967; U0002

== ENCOUNTER 2022-01-13 12:16 | Inpatient (IN) | payer MEDICARE ==
[2022-01-13 13:09] LABS: Bacteria/HPF None Seen HPF (None Seen); Bilirubin Negative (Negative); Blood, Urine Trace (Negative); Clarity Clear (Clear); Glucose, Urine (Dipstick) Normal (Negative); Ketone, Urine 20 mg/dL (Negative); Leukocyte Negative Leu/uL (Negative); Nitrite Negative (Negative); Protein, Urine (Dipstick) 50 mg/dL (Neg-Trace); Specific Gravity, Urine 1.041 (1.002-1.036); Squamous Epithelial None Seen HPF (0-3); WBC/HPF 0-3 HPF (0-3)
[2022-01-13 13:32] LABS: ALT (SGPT) 7 U/L (8-55); AST (SGOT) 16 U/L (5-34); Alkaline Phosphatase 63 U/L (40-110); Anion Gap 20 mmol/L (10-20); BUN (Urea Nitrogen) 12 mg/dL (9.8-20.1); Bilirubin, Total 0.4 mg/dL (0.2-1.2); Calc. Creatinine Clearance 0 mL/min (70-130); Calcium 9.9 mg/dL (7.8-10.44); Carbon Dioxide 25 mmol/L (23-31); Chloride 101 mmol/L (98-107); Estimated GFR 98; Globulin 2.7 g/dL (2.4-3.5); Glucose 81 mg/dL (80-115); Potassium 3.7 mmol/L (3.5-5.1); Protein, Total 6.7 g/dL (5.8-8.1); Sodium 142 mmol/L (136-145)
[2022-01-13 13:37] LABS: #Lymphocytes 1.9 thou/uL (1.20-3.40); #Monocytes 0.4 thou/uL (0.11-0.59); #Neutrophils 3.3 thou/uL (1.40-6.50); %Basophils 0.3 % (0.0-1.0); %Eosinophils 0.8 % (0.0-10.0); %Lymphocytes 33.7 % (21.0-51.0); %Monocytes 7.4 % (0.0-10.0); %Neutrophils 57.8 % (42.0-75.0); Hemoglobin 12.5 g/dL (12.0-16.0); Mean Corpuscular HGB CONC 33.9 g/dL (32.0-36.0); Mean Corpuscular Hemoglobin 31.2 pg (27.0-31.0); Mean Corpuscular Volume 91.9 fL (78.0-98.0); Mean Platelet Volume 7.8 fL (7.4-10.4); Platelet Count 150 thou/uL (130-400); RBC Distribution Width 13.4 % (11.5-14.5); Red Blood Cell (RBC) Count 4.01 mill/uL (4.20-5.40); White Blood Cell (WBC) Count 5.8 thou/uL (4.8-10.8)
[2022-01-13] MEDS ORDERED: Aspirin Chewable 81 MG TAB ONE (15:37)
[2022-01-13] MEDS ORDERED: Acetaminophen 325 MG TAB PO PRN (16:54)
[2022-01-13] MEDS ORDERED: Ondansetron ODT 4 MG TAB SL PRN (18:15)
[2022-01-13] MEDS ORDERED: Ondansetron PF 4 MG/2 ML Vial IVP PRN (18:15)
[2022-01-13 18:53] VITALS: BMI 25.7
[2022-01-13] MEDS: Atorvastatin Calcium 20 MG TAB PO SCH (21:10)
[2022-01-13] MEDS: levETIRAcetam 500 MG TAB PO SCH (21:10)
[2022-01-13] MEDS: Famotidine 20 MG TAB PO SCH (21:11)
[2022-01-13] MEDS: Lacosamide 50 mg Tablet PO SCH (21:11)
[2022-01-14 05:22] LABS: Anion Gap 12 mmol/L (10-20); BUN (Urea Nitrogen) 11 mg/dL (9.8-20.1); Calc. Creatinine Clearance 104 mL/min (70-130); Calcium 9.6 mg/dL (7.8-10.44); Carbon Dioxide 32 mmol/L (23-31); Chloride 101 mmol/L (98-107); Estimated GFR 100; Glucose 88 mg/dL (80-115); Sodium 142 mmol/L (136-145)
[2022-01-14 05:28] LABS: Potassium 2.7 mmol/L (3.5-5.1)
[2022-01-14] MEDS ORDERED: Electrolyte Replacement Protocol 1 EACH FS PRN (05:45)
[2022-01-14] MEDS ORDERED: Potassium Chloride 20 MEQ in Premix Bag 1 BAG IVPB SCH (05:45)
[2022-01-14 06:04] LABS: Magnesium 1.7 mg/dL (1.6-2.6)
[2022-01-14] MEDS: Potassium Chloride 20 MEQ TAB PO SCH ×2 (06:06→09:59)
[2022-01-14] MEDS ORDERED: Magnesium 2 GM/50 ML(in water) 2 GM in Premix Bag 1 BAG IVPB SCH ×2 (08:00→10:45)
[2022-01-14] MEDS: Enoxaparin Sodium 40 MG/0.4 ML SYRINGE SC SCH (09:58)
[2022-01-14] MEDS: Famotidine 20 MG TAB PO SCH ×2 (09:59→21:51)
[2022-01-14] MEDS: Losartan 25 MG TAB PO SCH (09:59)
[2022-01-14] MEDS: Amlodipine 10 MG TAB PO SCH (10:00)
[2022-01-14] MEDS: Aspirin 81 mg Enteric Coated Tablet PO SCH (10:00)
[2022-01-14] MEDS ORDERED: Potassium Chloride 20 MEQ TAB PO SCH ×2 (10:00→12:00)
[2022-01-14] MEDS: Divalproex Sodium 250 MG (DR) TAB PO SCH (10:00)
[2022-01-14] MEDS: Lacosamide 50 mg Tablet PO SCH ×2 (10:01→21:52)
[2022-01-14] MEDS: Cyanocobalamin (Vitamin B-12) 1,000 MCG TAB PO SCH (10:02)
[2022-01-14] MEDS: levETIRAcetam 500 MG TAB PO SCH ×2 (10:02→21:51)
[2022-01-14 14:18] LABS: Potassium 3.6 mmol/L (3.5-5.1)
[2022-01-14] MEDS: Atorvastatin Calcium 20 MG TAB PO SCH (21:51)
[2022-01-15 05:58] LABS: Anion Gap 13 mmol/L (10-20); BUN (Urea Nitrogen) 11 mg/dL (9.8-20.1); Calc. Creatinine Clearance 99 mL/min (70-130); Calcium 9.2 mg/dL (7.8-10.44); Carbon Dioxide 29 mmol/L (23-31); Chloride 105 mmol/L (98-107); Estimated GFR 99; Glucose 96 mg/dL (80-115); Magnesium 1.6 mg/dL (1.6-2.6); Potassium 3.5 mmol/L (3.5-5.1); Sodium 143 mmol/L (136-145)
[2022-01-15] MEDS ORDERED: Potassium Chloride 20 MEQ TAB PO SCH (08:00)
[2022-01-15] MEDS ORDERED: Magnesium 2 GM/50 ML(in water) 2 GM in Premix Bag 1 BAG IVPB SCH (08:00)
[2022-01-15] MEDS: Enoxaparin Sodium 40 MG/0.4 ML SYRINGE SC SCH (12:13)
[2022-01-15] MEDS: levETIRAcetam 500 MG TAB PO SCH ×2 (12:13→21:24)
[2022-01-15] MEDS: Famotidine 20 MG TAB PO SCH ×2 (12:14→21:25)
[2022-01-15] MEDS: Lacosamide 50 mg Tablet PO SCH ×2 (12:14→21:24)
[2022-01-15] MEDS: Divalproex Sodium 250 MG (DR) TAB PO SCH (12:14)
[2022-01-15] MEDS: Losartan 25 MG TAB PO SCH (12:15)
[2022-01-15] MEDS: Cyanocobalamin (Vitamin B-12) 1,000 MCG TAB PO SCH (12:15)
[2022-01-15] MEDS: Aspirin 81 mg Enteric Coated Tablet PO SCH (12:16)
[2022-01-15] MEDS: Amlodipine 10 MG TAB PO SCH (12:16)
[2022-01-15] MEDS: Atorvastatin Calcium 20 MG TAB PO SCH (21:25)
[2022-01-16 05:48] LABS: Anion Gap 14 mmol/L (10-20); BUN (Urea Nitrogen) 8 mg/dL (9.8-20.1); Calc. Creatinine Clearance 102 mL/min (70-130); Calcium 9.6 mg/dL (7.8-10.44); Carbon Dioxide 26 mmol/L (23-31); Chloride 104 mmol/L (98-107); Estimated GFR 100; Glucose 97 mg/dL (80-115); Magnesium 1.5 mg/dL (1.6-2.6); Potassium 3.3 mmol/L (3.5-5.1); Sodium 141 mmol/L (136-145)
[2022-01-16] MEDS ORDERED: Potassium Chloride 20 MEQ TAB PO SCH (08:00)
[2022-01-16] MEDS ORDERED: Magnesium 2 GM/50 ML(in water) 2 GM in Premix Bag 1 BAG IVPB SCH (08:00)
[2022-01-16] MEDS: Losartan 25 MG TAB PO SCH (08:25)
[2022-01-16] MEDS: Aspirin 81 mg Enteric Coated Tablet PO SCH (08:26)
[2022-01-16] MEDS: Lacosamide 50 mg Tablet PO SCH ×2 (08:26→20:35)
[2022-01-16] MEDS: Cyanocobalamin (Vitamin B-12) 1,000 MCG TAB PO SCH (08:27)
[2022-01-16] MEDS: Amlodipine 10 MG TAB PO SCH (08:27)
[2022-01-16] MEDS: Famotidine 20 MG TAB PO SCH ×2 (08:27→20:36)
[2022-01-16] MEDS: Enoxaparin Sodium 40 MG/0.4 ML SYRINGE SC SCH (08:28)
[2022-01-16] MEDS: levETIRAcetam 500 MG TAB PO SCH ×2 (08:29→20:36)
[2022-01-16] MEDS: Divalproex Sodium 250 MG (DR) TAB PO SCH (08:34)
[2022-01-16] MEDS ORDERED: Divalproex Sodium 250 MG (DR) TAB PO SCH (09:00)
[2022-01-16] MEDS: Atorvastatin Calcium 20 MG TAB PO SCH (20:36)
[2022-01-17 08:46] LABS: Magnesium 1.7 mg/dL (1.6-2.6); Potassium 4.4 mmol/L (3.5-5.1); Sodium 141 mmol/L (136-145)
[2022-01-17] MEDS: Enoxaparin Sodium 40 MG/0.4 ML SYRINGE SC SCH (08:58)
[2022-01-17] MEDS: levETIRAcetam 500 MG TAB PO SCH ×2 (08:59→20:56)
[2022-01-17] MEDS: Lacosamide 50 mg Tablet PO SCH ×2 (09:00→20:56)
[2022-01-17] MEDS: Losartan 25 MG TAB PO SCH (09:18)
[2022-01-17] MEDS: Cyanocobalamin (Vitamin B-12) 1,000 MCG TAB PO SCH (09:18)
[2022-01-17] MEDS: Famotidine 20 MG TAB PO SCH ×2 (09:18→20:56)
[2022-01-17] MEDS: Aspirin 81 mg Enteric Coated Tablet PO SCH (09:18)
[2022-01-17] MEDS: Amlodipine 10 MG TAB PO SCH (09:19)
[2022-01-17] MEDS ORDERED: Magnesium 2 GM/50 ML(in water) 2 GM in Premix Bag 1 BAG IVPB SCH (11:00)
[2022-01-17] MEDS: Atorvastatin Calcium 20 MG TAB PO SCH (20:56)
[2022-01-18 05:48] LABS: Magnesium 1.8 mg/dL (1.6-2.6)
[2022-01-18] MEDS ORDERED: Magnesium 2 GM/50 ML(in water) 2 GM in Premix Bag 1 BAG IVPB SCH (08:00)
[2022-01-18] MEDS: Enoxaparin Sodium 40 MG/0.4 ML SYRINGE SC SCH (09:17)
[2022-01-18] MEDS: Lacosamide 50 mg Tablet PO SCH ×2 (09:20→20:15)
[2022-01-18] MEDS: levETIRAcetam 500 MG TAB PO SCH ×2 (09:21→20:16)
[2022-01-18] MEDS: Famotidine 20 MG TAB PO SCH ×2 (09:22→20:15)
[2022-01-18] MEDS: Aspirin 81 mg Enteric Coated Tablet PO SCH (09:22)
[2022-01-18] MEDS: Cyanocobalamin (Vitamin B-12) 1,000 MCG TAB PO SCH (09:22)
[2022-01-18] MEDS: Amlodipine 10 MG TAB PO SCH (09:22)
[2022-01-18] MEDS: Losartan 25 MG TAB PO SCH (09:22)
[2022-01-18] MEDS: Atorvastatin Calcium 20 MG TAB PO SCH (20:16)
[2022-01-19 08:05] VITALS: BP 140/75; TEMP 97.4
[2022-01-19] MEDS: levETIRAcetam 500 MG TAB PO SCH (08:10)
[2022-01-19] MEDS: Losartan 25 MG TAB PO SCH (08:11)
[2022-01-19] MEDS: Aspirin 81 mg Enteric Coated Tablet PO SCH (08:12)
[2022-01-19] MEDS: Lacosamide 50 mg Tablet PO SCH (08:12)
[2022-01-19] MEDS: Famotidine 20 MG TAB PO SCH (08:12)
[2022-01-19] MEDS: Enoxaparin Sodium 40 MG/0.4 ML SYRINGE SC SCH (08:13)
[2022-01-19] MEDS: Amlodipine 10 MG TAB PO SCH (08:13)
[2022-01-19] MEDS: Cyanocobalamin (Vitamin B-12) 1,000 MCG TAB PO SCH (08:13)
[2022-01-19 08:41] LABS: Magnesium 1.7 mg/dL (1.6-2.6)
[2022-01-19] MEDS ORDERED: Magnesium 2 GM/50 ML(in water) 2 GM in Premix Bag 1 BAG IVPB SCH (10:00)
[2022-01-19] MEDS ORDERED: Potassium Chloride 20 MEQ TAB PO SCH (10:00)
== END 2022-01-19 11:25 | DRG 101 ==
LOC: SUATTDRO 12:16 → ERS 12:16 → NEURO 18:22
PROVIDERS: ADMIT Hospitalist; ATTEND Internal Medicine
DX: G40.919 Epilepsy, unspecified, intractable, without status epilepticus (principal); G93.49 Other encephalopathy; I69.351 Hemiplegia and hemiparesis following cerebral infarction affecting right dominant side; R47.01 Aphasia; I50.32 Chronic diastolic (congestive) heart failure; I11.0 Hypertensive heart disease with heart failure; E78.5 Hyperlipidemia, unspecified; K21.9 Gastro-esophageal reflux disease without esophagitis; F41.9 Anxiety disorder, unspecified; F32.A Depression, unspecified; R53.81 Other malaise; E87.6 Hypokalemia; E83.42 Hypomagnesemia; D64.9 Anemia, unspecified; F10.10 Alcohol abuse, uncomplicated; Z87.891 Personal history of nicotine dependence; Z98.890 Other specified postprocedural states; Z79.899 Other long term (current) drug therapy; Z79.82 Long term (current) use of aspirin; Z20.822 Contact with and (suspected) exposure to COVID-19
CPT/HCPCS: 36415; 36416; 51701; 70496; 70498; 71045; 80048; 80053; 80164; 80177; 81003; 81015; 83735; 84132; 84295; 84484; 85025; 93005; 95712; 95816; 95819; 95957; J1650; J3475; Q9967; U0003; U0005

== ENCOUNTER 2022-02-15 10:48 | Inpatient (IN) | payer MEDICARE ==
[2022-02-15 11:40] LABS: #Lymphocytes 1.3 thou/uL (1.20-3.40); #Monocytes 1.4 thou/uL (0.11-0.59); #Neutrophils 8.5 thou/uL (1.40-6.50); %Basophils 0.1 % (0.0-1.0); %Eosinophils 0.1 % (0.0-10.0); %Lymphocytes 11.9 % (21.0-51.0); %Monocytes 12.7 % (0.0-10.0); %Neutrophils 75.3 % (42.0-75.0); Hemoglobin 13.1 g/dL (12.0-16.0); Mean Corpuscular HGB CONC 34.2 g/dL (32.0-36.0); Mean Corpuscular Volume 90.7 fL (78.0-98.0); Mean Platelet Volume 7.1 fL (7.4-10.4); Platelet Count 217 thou/uL (130-400); RBC Distribution Width 13.6 % (11.5-14.5); Red Blood Cell (RBC) Count 4.23 mill/uL (4.20-5.40); White Blood Cell (WBC) Count 11.3 thou/uL (4.8-10.8)
[2022-02-15 11:42] LABS: ALT (SGPT) Less than 7 U/L (8-55); AST (SGOT) 11 U/L (5-34); Acetaminophen Less than 10.0 mcg/mL (10.0-30.0); Albumin 3.9 g/dL (3.4-4.8); Alcohol Less than 10 mg/dL (Less than 10); Alkaline Phosphatase 64 U/L (40-110); Anion Gap 16 mmol/L (10-20); BUN (Urea Nitrogen) 14 mg/dL (9.8-20.1); Bilirubin, Total 0.6 mg/dL (0.2-1.2); Calc. Creatinine Clearance 0 mL/min (70-130); Calcium 10.1 mg/dL (7.8-10.44); Carbon Dioxide 28 mmol/L (23-31); Chloride 99 mmol/L (98-107); Estimated GFR 97; Globulin 3.5 g/dL (2.4-3.5); Glucose 134 mg/dL (80-115); Magnesium 1.7 mg/dL (1.6-2.6); Potassium 3.2 mmol/L (3.5-5.1); Protein, Total 7.4 g/dL (5.8-8.1); Salicylate Less than 8.0 mg/dL (15.0-30.0); Sodium 140 mmol/L (136-145)
[2022-02-15] MEDS ORDERED: Potassium Chloride 20 MEQ/100 ML PREMIX BAG ONE ×2 (13:39→15:43)
[2022-02-15] MEDS ORDERED: Acetaminophen 650 MG Suppository PR PRN (14:23)
[2022-02-15] MEDS ORDERED: Senokot S 8.6-50 MG TAB PO PRN (14:23)
[2022-02-15 15:33] LABS: SARS-CoV-2 NAA Rapid Test DETECTED (NotDetected)
[2022-02-15] MEDS ORDERED: Aspirin 300 MG Suppository PR ONE (15:34)
[2022-02-15 16:46] LABS: Magnesium 1.7 mg/dL (1.6-2.6)
[2022-02-15] MEDS: Sodium Chloride 0.9% 1,000 ML IV SCH (16:51)
[2022-02-15 17:12] VITALS: BMI 24.6
[2022-02-15] MEDS ORDERED: Ondansetron ODT 4 MG TAB PO PRN (21:44)
[2022-02-15] MEDS ORDERED: Valproate Sodium 1,000 MG in Sodium Chloride 0.9% 100 ML IVPB SCH (23:00)
[2022-02-15] MEDS ORDERED: levETIRAcetam in NS 1,500 MG in Premix Bag 1 BAG IVPB SCH (23:00)
[2022-02-16] MEDS: Sodium Chloride 0.9% 1,000 ML IV SCH (04:21)
[2022-02-16 05:26] LABS: #Eosinphils 0.1 thou/uL (0.0-0.7); #Lymphocytes 1.8 thou/uL (1.20-3.40); #Monocytes 0.9 thou/uL (0.11-0.59); %Basophils 0.4 % (0.0-1.0); %Eosinophils 1.3 % (0.0-10.0); %Lymphocytes 25.7 % (21.0-51.0); %Monocytes 13.7 % (0.0-10.0); Hemoglobin 10.8 g/dL (12.0-16.0); Mean Corpuscular HGB CONC 33.3 g/dL (32.0-36.0); Mean Corpuscular Hemoglobin 30.2 pg (27.0-31.0); Mean Corpuscular Volume 90.6 fL (78.0-98.0); Mean Platelet Volume 7.1 fL (7.4-10.4); Platelet Count 191 thou/uL (130-400); RBC Distribution Width 13.5 % (11.5-14.5); Red Blood Cell (RBC) Count 3.56 mill/uL (4.20-5.40); White Blood Cell (WBC) Count 6.8 thou/uL (4.8-10.8)
[2022-02-16 05:40] LABS: Anion Gap 11 mmol/L (10-20); BUN (Urea Nitrogen) 9 mg/dL (9.8-20.1); Calc. Creatinine Clearance 105 mL/min (70-130); Calcium 9.5 mg/dL (7.8-10.44); Carbon Dioxide 31 mmol/L (23-31); Cardiac Risk 1.8 (Less than 4.5); Chloride 102 mmol/L (98-107); Cholesterol 126 mg/dl (< 200 Desired); Estimated GFR 102; Glucose 91 mg/dL (80-115); HDL Cholesterol 72 mg/dL (>60 Neg Risk); LDL Cholesterol, Calculated 42 mg/dL; Potassium 3.1 mmol/L (3.5-5.1); Sodium 141 mmol/L (136-145); Triglycerides 62 mg/dL (Less than 150)
[2022-02-16] MEDS ORDERED: Divalproex Sodium 250 MG (DR) TAB PO SCH ×2 (09:00→21:00)
[2022-02-16] MEDS ORDERED: levETIRAcetam in NS 1,500 MG in Premix Bag 1 BAG IVPB SCH ×2 (09:00)
[2022-02-16] MEDS ORDERED: Valproate Sodium 1,000 MG in Sodium Chloride 0.9% 100 ML IVPB SCH ×2 (09:00→23:00)
[2022-02-16] MEDS ORDERED: Lacosamide 200 MG in Sodium Chloride 0.9% 50 ML IVPB SCH (09:00)
[2022-02-16] MEDS ORDERED: levETIRAcetam 500 MG TAB PO SCH (09:00)
[2022-02-16] MEDS ORDERED: Lacosamide 50 mg Tablet PO SCH (09:00)
[2022-02-16] MEDS: Amlodipine 10 MG TAB PO SCH (09:48)
[2022-02-16] MEDS: Losartan 25 MG TAB PO SCH (09:49)
[2022-02-16] MEDS: Thiamine 100 MG TAB PO SCH (09:53)
[2022-02-16] MEDS: Famotidine 20 MG TAB PO SCH ×2 (09:56→21:14)
[2022-02-16] MEDS: Cyanocobalamin (Vitamin B-12) 1,000 MCG TAB PO SCH (09:58)
[2022-02-16] MEDS: Folic Acid 1 MG TAB PO SCH (09:58)
[2022-02-16] MEDS: Zinc Sulfate 220 MG CAP PO SCH (10:01)
[2022-02-16] MEDS: Magnesium Oxide 400 MG TAB PO SCH (10:01)
[2022-02-16] MEDS: Ascorbic Acid 500 mg Chewable Tablet PO SCH (10:01)
[2022-02-16 12:03] LABS: Bilirubin Negative (Negative); Blood, Urine Negative (Negative); Clarity Clear (Clear); Glucose, Urine (Dipstick) Normal (Negative); Ketone, Urine Trace mg/dL (Negative); Leukocyte Negative Leu/uL (Negative); Nitrite Negative (Negative); Protein, Urine (Dipstick) Negative (Neg-Trace); RBC/HPF 0-3 HPF (0-3); Specific Gravity, Urine 1.009 (1.002-1.036); Squamous Epithelial 0-3 HPF (0-3); Urobilinogen Normal mg/dL (Less than 2); WBC/HPF 0-3 HPF (0-3); pH, Urine 7.5 (5.0-9.0)
[2022-02-16 12:05] LABS: Bacteria/HPF 1+ HPF (None Seen)
[2022-02-16 12:06] LABS: Urine Culture Reflex Yes Yes
[2022-02-16] MEDS ORDERED: Atorvastatin Calcium 20 MG TAB PO SCH (21:00)
[2022-02-16] MEDS: Lacosamide 50 mg Tablet PO SCH (21:14)
[2022-02-16] MEDS: levETIRAcetam 500 MG TAB PO SCH (21:14)
[2022-02-16] MEDS: Divalproex Sodium DR 500 MG TAB PO SCH (21:14)
[2022-02-17 05:38] LABS: #Eosinphils 0.1 thou/uL (0.0-0.7); %Basophils 0.5 % (0.0-1.0); %Eosinophils 1.8 % (0.0-10.0); Mean Corpuscular Volume 91.2 fL (78.0-98.0); Mean Platelet Volume 7.1 fL (7.4-10.4)
[2022-02-17 05:50] LABS: Anion Gap 15 mmol/L (10-20); BUN (Urea Nitrogen) 15 mg/dL (9.8-20.1); Calc. Creatinine Clearance 115 mL/min (70-130); Carbon Dioxide 27 mmol/L (23-31); Chloride 98 mmol/L (98-107); Estimated GFR 104; Glucose 100 mg/dL (80-115); Potassium 3.2 mmol/L (3.5-5.1); Sodium 137 mmol/L (136-145)
[2022-02-17 05:59] LABS: #Lymphocytes 2.1 thou/uL (1.20-3.40); #Neutrophils 4.6 thou/uL (1.40-6.50); %Lymphocytes 26.6 % (21.0-51.0); %Monocytes 13.1 % (0.0-10.0); Hemoglobin 11.5 g/dL (12.0-16.0); Mean Corpuscular HGB CONC 33.3 g/dL (32.0-36.0); Mean Corpuscular Hemoglobin 30.4 pg (27.0-31.0); Platelet Count 254 thou/uL (130-400); RBC Distribution Width 13.5 % (11.5-14.5); Red Blood Cell (RBC) Count 3.78 mill/uL (4.20-5.40); White Blood Cell (WBC) Count 7.9 thou/uL (4.8-10.8)
[2022-02-17] MEDS: Losartan 25 MG TAB PO SCH (09:05)
[2022-02-17] MEDS: Lacosamide 50 mg Tablet PO SCH (09:06)
[2022-02-17] MEDS: Magnesium Oxide 400 MG TAB PO SCH (09:06)
[2022-02-17] MEDS: Folic Acid 1 MG TAB PO SCH (09:07)
[2022-02-17] MEDS: Famotidine 20 MG TAB PO SCH (09:07)
[2022-02-17] MEDS: Thiamine 100 MG TAB PO SCH (09:07)
[2022-02-17] MEDS: Divalproex Sodium DR 500 MG TAB PO SCH (09:07)
[2022-02-17] MEDS: Amlodipine 10 MG TAB PO SCH (09:08)
[2022-02-17] MEDS: Ascorbic Acid 500 mg Chewable Tablet PO SCH (09:08)
[2022-02-17] MEDS: Zinc Sulfate 220 MG CAP PO SCH (09:08)
[2022-02-17] MEDS: Cyanocobalamin (Vitamin B-12) 1,000 MCG TAB PO SCH (09:09)
[2022-02-17] MEDS: levETIRAcetam 500 MG TAB PO SCH (10:34)
[2022-02-17] MEDS ORDERED: Potassium Chloride 20 MEQ TAB PO SCH (12:45)
[2022-02-17 13:08] VITALS: BP 142/76; TEMP 96.5
== END 2022-02-17 17:14 | disposition home or self-care (01) | DRG 91 ==
LOC: ERS 10:48 → NEURO 16:05 → OBSVTOIN 02-16 17:58
PROVIDERS: ADMIT Internal Medicine; ATTEND Internal Medicine
PROC: 8E0ZXY6 Isolation (ICD-10-PCS; principal; 2022-02-16)
DX: G83.84 Todd's paralysis (postepileptic) (principal); G93.41 Metabolic encephalopathy; U07.1 COVID-19; I50.32 Chronic diastolic (congestive) heart failure; I69.951 Hemiplegia and hemiparesis following unspecified cerebrovascular disease affecting right dominant side; G40.909 Epilepsy, unspecified, not intractable, without status epilepticus; K21.9 Gastro-esophageal reflux disease without esophagitis; F41.9 Anxiety disorder, unspecified; F32.A Depression, unspecified; E78.5 Hyperlipidemia, unspecified; E87.6 Hypokalemia; I11.0 Hypertensive heart disease with heart failure; R13.12 Dysphagia, oropharyngeal phase; D72.829 Elevated white blood cell count, unspecified; G89.29 Other chronic pain; Z79.82 Long term (current) use of aspirin; Z79.899 Other long term (current) drug therapy
CPT/HCPCS: 36415; 70450; 70551; 71045; 80048; 80053; 80061; 80164; 80177; 80307; 81001; 83735; 84146; 84443; 84484; 85025; 86140; 87086; 93005; 94760; 95816; 95819; 95957; 96365; 96366; 96367; 96375; 96376; C9254; G0378; J1953; J3480; J3490; J7050